=== PATIENT | male | born 1960 | race Caucasian/White ===

== ENCOUNTER 2018-09-10 20:20 | Inpatient (IN) | payer OTHER ==
[2018-09-10] MEDS ORDERED: ATORVASTATIN 80 MG TAB PO STA (20:21)
[2018-09-10] MEDS ORDERED: MORPHINE SULFATE 4 MG/ML SYRINGE IV STA (20:21)
[2018-09-10] MEDS ORDERED: HEPARIN SODIUM,PORCINE 5,000 UNIT/ML 1 ML VIAL IV STA ×2 (20:21)
[2018-09-10] MEDS ORDERED: TICAGRELOR 90 MG TAB PO STA (20:34)
--- NOTE | 2018-09-10 20:43 | ED ---
Chest Pain HPI - General Chief Complaint: Chest Pain Stated Complaint: Chest Pain Time Seen by Provider: 09/10/18 20:20 Source: patient, EMS, RN notes reviewed Mode of arrival: EMS Limitations: no limitations - History of Present Illness Initial Comments: This is a 57-year-old male with a prior history of cardiac stents and UT with last one at age 41 and also is a one half pack a day smoker who had previously quit who states he had the onset today while at rest of retrosternal chest pain it was approximately 7/10 severity did have some nausea some sweats with it. EMS was finally summoned the patient did take 324 mg of aspirin. He was given nitroglycerin pain did improve down to 4/10 however his blood pressure also declined to about 100 systolic. Patient was transported by EMS. He did have evidence of ST elevation anterior leads Q-wave formation in lead 3 noted. On EKG submitted by EMS. No cough no phlegm production no other symptoms reported. Issue currently has not seen a doctor in quite a while and is on no medication. MD Complaint: chest pain - Related Data Allergies Allergy/AdvReac Type Severity Reaction Status Date / Time No Known Allergies Allergy Verified 09/10/18 20:30 Review of Systems ROS Statement: Those systems with pertinent positive or pertinent negative responses have been documented in the HPI. ROS Other: All systems not noted in ROS Statement are negative. EKG Findings - EKG Results: EKG: interpreted by DIANN, sinus rhythm (Sinus rhythm of 86. Interval 150 QRS duration 114 QT since QTC 372/[address] elevation in the anterior leads also appear to show elevation in leads 3 with depression in lead 1 and aVL.) General Exam - General Exam Comments Initial Comments: This is a well-developed well-nourished awake alert oriented 3 male Limitations: no limitations General appearance: alert, anxious Head exam: Present: atraumatic, normocephalic, normal inspection Eye exam: Present: normal appearance, PERRL, EOMI. Absent: scleral icterus, conjunctival injection, periorbital swelling ENT exam: Present: normal exam, mucous membranes moist Neck exam: Present: normal inspection. Absent: tenderness, meningismus, lymphadenopathy Respiratory exam: Present: normal lung sounds bilaterally. Absent: respiratory distress, wheezes, rales, rhonchi, stridor Cardiovascular Exam: Present: regular rate, normal rhythm, normal heart sounds. Absent: systolic murmur, diastolic murmur, rubs, gallop, clicks GI/Abdominal exam: Present: soft, normal bowel sounds. Absent: distended, tenderness, guarding, rebound, rigid Extremities exam: Present: normal inspection, full ROM, normal capillary refill. Absent: tenderness, pedal edema, joint swelling, calf tenderness Back exam: Present: normal inspection Neurological exam: Present: alert, oriented X3, CN II-XII intact Psychiatric exam: Present: normal affect, normal mood Skin exam: Present: warm, dry, intact, pallor. Absent: rash Course Vital Signs 09/10/18 09/10/18 09/10/18 20:22 20:35 20:40 Temperature 97.9 F Pulse Rate 86 90 83 Respiratory 17 17 17 Rate Blood Pressure 129/91 125/85 123/85 O2 Sat by Pulse 95 94 L 98 Oximetry - Reevaluation(s) Reevaluation #1: 09/10/18 20:42 Patient did finally get some relief after IV her feet given. I had discussed the case previously with Dr. Waller could did come the emergency department. I also did discuss case Dr. Oliveros. STEMI alert was started in the emergency department Reevaluation #2: 09/10/18 20:42 With the patient's permission I did discuss the findings with family members or present. Reevaluation #3: 09/10/18 20:44 I did discuss the case with Chest Pain MDM - MDM X-ray was reviewed no definite acute findings are seen. Official reading was pending patient did go up to the [employer] his pain was improved he was evaluated both by cardiology and by the hospitalist. Critical Care Time Critical Care Time: Yes Critical Care Time: 31 minutes of critical care time which includes initial presentation with history physical labs x-rays multiple reevaluation the patient discussed with cardiology discussion with the hospitalist discussion with family members. Review of EKGs documentation of the above. Disposition Clinical Impression: ST elevation myocardial infarction (STEMI), Chest pain Disposition: ADMITTED IP TO THIS [facility] Condition: Serious Referrals: None,Stated [Primary Care Provider] - 1-2 days
[2018-09-10 20:45] LABS: Basophils % (A) 0 %; Eosinophils # (A) 0.1 k/uL (0-0.7); Eosinophils % (A) 1 %; HCT 40.9 % (39.0-53.0); HGB 13.8 gm/dL (13.0-17.5); Lymphocytes # (A) 1.2 k/uL (1.0-4.8); Lymphocytes % (A) 8 %; MCH 32.8 pg (25.0-35.0); MCHC 33.7 g/dL (31.0-37.0); MCV 97.4 fL (80.0-100.0); Mean Platelet Volume 7.3; Monocytes # (A) 0.7 k/uL (0-1.0); Monocytes % (A) 5 %; Neutrophils % (A) 86 %; Platelet Count 272 k/uL (150-450); RDW 13.2 % (11.5-15.5); WBC 15.2 k/uL (3.8-10.6)
[2018-09-10] MEDS ORDERED: IV FLUID CONTINUATION 500 ML IV ONE (20:45)
[2018-09-10] MEDS ORDERED: LIDOCAINE 1% INJ 10MG/ML (20 ML MDV) ONE ×2 (20:49→22:25)
--- NOTE | 2018-09-10 20:51 | XR ---
EXAMINATION: XR chest 1V portable DATE AND TIME: 09/10/2018 8:32 PM CLINICAL INDICATION: PHH; chest pain TECHNIQUE: AP upright portable COMPARISON: None FINDINGS: The lungs are clear. The pleural spaces are negative. The cardiac silhouette is borderline for enlargement. The remainder of the mediastinal silhouette is unremarkable. The skeletal structures and soft tissues are negative for acute findings. IMPRESSION: NO ACUTE PROCESS.
[2018-09-10 20:54] LABS: D-Dimer 0.52 mg/L FEU (<0.60); Partial Thromboplastin Time 37.2 sec (22.0-30.0); Prothrombin Time 10.3 sec (9.0-12.0)
[2018-09-10 20:57] LABS: Albumin 4.1 g/dL (3.5-5.0); Calcium 9.4 mg/dL (8.4-10.2); Magnesium 1.3 mg/dL (1.6-2.3); Total Bilirubin 0.9 mg/dL (0.2-1.3); Total Protein 7.2 g/dL (6.3-8.2)
[2018-09-10] MEDS ORDERED: MIDAZOLAM 2 MG/2 ML VIAL IV ONE (20:57)
[2018-09-10] MEDS ORDERED: LIDOCAINE 1% INJ 10MG/ML (10 ML MDV) SQ ONE (20:57)
[2018-09-10 21:03] LABS: Potassium 4.2 mmol/L (3.5-5.1)
[2018-09-10 21:06] LABS: Creatine Kinase MB 3.5 ng/mL (0.0-2.4)
[2018-09-10 21:07] LABS: Troponin I 0.085 ng/mL (0.000-0.034)
[2018-09-10] MEDS ORDERED: IOPAMIDOL-370 100ML BTL INJ ONE ×3 (21:10→23:15)
[2018-09-10] MEDS ORDERED: BIVALIRUDIN BOLUS 250 MG/50 ML IV ONE (21:18)
[2018-09-10] MEDS ORDERED: BIVALIRUDIN 250 MG in SODIUM CHLORIDE 0.9% 50 ML IV ONE ×2 (21:19→22:10)
[2018-09-10] MEDS ORDERED: ONDANSETRON 4 MG/2 ML VIAL ONE (21:23)
[2018-09-10] MEDS ORDERED: ONDANSETRON 4 MG/2 ML VIAL IVP ONE (21:25)
[2018-09-10] MEDS ORDERED: NOREPINEPHRINE 4 MG in SODIUM CHLORIDE 0.9% 250 ML IV ONE (21:35)
[2018-09-10] MEDS ORDERED: SODIUM CHLORIDE 0.9% 500 ML 500 ML IV ONE (21:36)
[2018-09-10] MEDS ORDERED: ATROPINE SULFATE 0.1 MG/ML 10ML SYRINGE IV ONE ×3 (21:41→22:07)
--- NOTE | 2018-09-10 21:41 | CONS ---
CONSULTATION Mr. Krishnan is a 57-year-old gentleman who came to the emergency room with a complaint of chest pain. The patient was working at home and putting and he started having chest discomfort about 2-1/2 hours prior to coming to the emergency room. The pain was continuous. It was associated with some nausea. When the EMS arrived, the EKG was suggestive of acute anterior wall myocardial infarction. Patient was given nitroglycerin, subsequently became hypotensive, and the patient was given fluids. This patient has a known history of coronary artery disease with a prior history of stenting done at [facility] several years ago. The patient is not seeing any doctor regularly. He is only taking aspirin. He is not taking any cholesterol medicine. The patient smokes about half pack per day. Denies any history of diabetes or hypertension. Patient has been having intermittent chest discomfort for the last 2 months; however, he has not the seen any doctor for that. PAST MEDICAL HISTORY: The patient denies any history of major surgeries. Prior history of stent. REVIEW OF SYSTEMS: The patient denies any history of GI bleeding, any blood in the stool, black stool or any problem with hematuria or any other bleeding disorder. MEDICATIONS: Aspirin. PHYSICAL EXAMINATION: Physical examination at present reveals a 57-year-old gentleman who does not appear to be in any acute distress. He has been having mild discomfort. Blood pressure is 119/87 mmHg. Head/ENT examination is negative. Neck is supple. There is no increase in jugular venous pressure. Both the carotid pulses are felt. There is no bruit. Chest is symmetrical. HEART: The PMI is not felt. First and second heart sounds are heard. Lungs are clinically clear to auscultation and percussion. Abdomen is negative. EXTREMITIES: Peripheral pulsations are weak. Initial EKG done by EMS was suggestive of acute anterior wall myocardial infarction. Subsequent EKG done in the emergency room shows ST-segment elevation in the inferior lead with ST-segment elevation in lead V1. FINAL IMPRESSION: 1. Acute myocardial infarction. 2. History of a prior stent. RECOMMENDATION: Will proceed with a cardiac catheterization for primary angioplasty. The procedure and risks were fully explained to the patient. MMODL / DAVEN: [id number] /
--- NOTE | 2018-09-10 21:41 | CC ---
CARDIAC CATHETERIZATION REPORT DATE OF SERVICE: 09/10/2018 Mr. Krishnan is a 57-year-old gentleman who came to the emergency room with complaint of chest pain. EKG is suggestive of acute anterior wall myocardial infarction. In view of that, the patient was recommended to have a cardiac catheterization. Patient has a prior history of a stent at [facility]. PROCEDURE: The right groin was prepped and draped in the usual manner and the skin was infiltrated with 2% Xylocaine. The right femoral artery was entered using Seldinger technique. A #6- Korean sheath was placed in. Selective coronary angiography was then performed in multiple projections and the left ventricular pressures were obtained. Patient tolerated the procedure well. Moderate sedation was used. Sedation time was 15 minutes. HEMODYNAMICS: Left ventricular end-diastolic pressure was 28 to 32 mmHg prior to angiography. No gradient is noted across the aortic valve. SELECTIVE CORONARY ANGIOGRAPHY: Left main coronary artery is distally . There is about 30% stenosis involving the distal left main and ostial LAD. The LAD is diffusely diseased and mid LAD after the origin of the diagonal branch is totally occluded. The ostial circumflex coronary artery has a 99% stenosis. Right coronary artery is totally occluded in its proximal portion. Distal right coronary artery fills collaterals from the circumflex system. FINAL IMPRESSION: This study reveals total occlusion of the mid LAD, which appears to be a culprit lesion. There is about 30% to 40% stenosis involving the ostial LAD and distal left main. Ostial circumflex coronary artery has a 99% stenosis. The right coronary artery is totally occluded. RECOMMENDATIONS: Films were reviewed with Dr. Hester. We will proceed with a stent to the LAD. MMODL / IJN: [id number] /
[2018-09-10] MEDS ORDERED: SODIUM BICARB 8.4% 50 ML VIAL (1 MEQ/ML) IV ONE ×2 (22:05→22:25)
[2018-09-10] MEDS ORDERED: ETOMIDATE 2 MG/ML 10 ML VIAL ONE (22:09)
[2018-09-10] MEDS ORDERED: LIDOCAINE 1% INJ 10MG/ML (20 ML MDV) SQ ONE (22:26)
[2018-09-10] MEDS ORDERED: ZOLPIDEM 5 MG TAB PO PRN (22:49)
[2018-09-10] MEDS ORDERED: RX INFO: IV CONTRAST WAS GIVEN 1 EACH MISC MISCELLANE PRN (22:49)
[2018-09-10] MEDS ORDERED: MAG HYDROX/AL HYDROX/SIMETH 30 ML CUP PO PRN (22:49)
[2018-09-10] MEDS ORDERED: ATROPINE SULFATE 0.1 MG/ML 10ML SYRINGE IV PRN (22:49)
[2018-09-10] MEDS ORDERED: NITROGLYCERIN SL TABS 0.4 MG TAB SUBLINGUAL PRN (22:49)
[2018-09-10] MEDS ORDERED: SODIUM CHLORIDE 0.9% 1,000 ML IV SCH (23:00)
[2018-09-10] MEDS ORDERED: HEPARIN SOD,PORK IN 0.45% NACL 25,000 UNIT in 0.45% NACL 1 250ML.BAG IV ONE (23:04)
[2018-09-10 23:18] LABS: ABG Base Excess -2.3 mmol/L; ABG HCO3 23 mmol/L (21-25); ABG Oxygen Saturation 92.3 % (94-97); ABG PCO2 37 mmHg (35-45); ABG PH 7.39 (7.35-7.45); ABG PO2 67 mmHg (83-108); ABG TCO2 24 mmol/L (19-24)
[2018-09-10] MEDS ORDERED: SODIUM CHLORIDE 0.9% 1,000 ML IV ONE (23:18)
[2018-09-10] MEDS ORDERED: FUROSEMIDE 10 MG/ML 2 ML VIAL IV ONE (23:28)
[2018-09-10] MEDS ORDERED: ACETAMINOPHEN IV (For NPO) 1,000 MG in EMPTY BAG 1 BAG IVPB PRN (23:43)
[2018-09-10] MEDS ORDERED: NALOXONE 0.4 MG/ML 1 ML VIAL IV PRN (23:43)
[2018-09-11] MEDS ORDERED: HEPARIN SOD,PORK IN 0.45% NACL 25,000 UNIT in 0.45% NACL 1 250ML.BAG IV SCH
[2018-09-11 00:02] LABS: Glucose,Whole Blood 166 mg/dL (75-99)
[2018-09-11 01:22] LABS: Magnesium 1.5 mg/dL (1.6-2.3); Potassium 4.5 mmol/L (3.5-5.1)
[2018-09-11] MEDS: EPINEPHrine 4 MG in DEXTROSE 5% IN WATER 250 ML IV SCH ×4 (01:22→09:01)
[2018-09-11] MEDS: MAGNESIUM SULFATE-D5W PMX 1 GM in DEXTROSE/WATER 1 100ML.BAG IVPB SCH ×2 (01:27→02:04)
--- NOTE | 2018-09-11 01:57 | P.HPIM ---
History of Present Illness H&P Date: 09/11/18 Patient is a 57-year-old male with a PMH of CAD status post 4 stents and active smoker presented to the emergency room due to sudden onset of chest pain. The patient notes that the pain started approximately 2-3 hours prior to presentation and was substernal, pressure-like, with associated nausea. The pain was similar to presentation as his previous MIs though the patient notes that he has not been following the head soft sugar operator and last saw one approximately 10 years ago, and has not been taking previously prescribed medications and had only been taking [id number] aspirin. Further history could not be obtained as the patient was taken to the OR for cardiac catheterization. The patient's seen postop in the medical ICU. Remaining history obtained from RN at bedside. She notes that the patient had been noncompliant to medications and had not been taking his statins or Plavix. She also noted that he continues to smoke as much as half pack per day and last saw primary care physician nearly 15 years ago. He also had been having chest discomfort intermittently over the last 2 months though did not seek any medical attention. The patient postoperatively denied any pain. The EKG on presentation was suggestive of an anterior wall FL with subsequent EKGs showing ST segment elevations in multiple leads. Troponin was 0.085, magnesium 1.3, BNP 154. Cardiology was consulted stat and the patient was diagnosed with a STEMI and taken for cardiac catheterization. The patient underwent the catheterization via right femoral approach and was found to have a mid LAD total occlusion, as likely culprit lesion, along with 99% stenosis of ostial circumflex coronary. As per the MICU RN, the patient underwent stenting of both the LAD along with the circumflex and developed hypotension with bradycardia immediately postoperatively. A balloon pump was thereby inserted along with a transvenous pacer. Review of Systems Pertinent positives and negatives as discussed in HPI, a complete review of systems was performed and all other systems are negative. Medications and Allergies Allergies Allergy/AdvReac Type Severity Reaction Status Date / Time No Known Allergies Allergy Verified 09/10/18 20:30 Physical Exam Vitals: Vital Signs Temp Pulse Resp BP Pulse Ox 09/11/18 01:05 93 L 09/11/18 01:00 108 H 21 124/85 94 L 09/11/18 00:40 106 H 20 110/80 92 L 09/11/18 00:30 102 H 12 98/77 91 L 09/11/18 00:20 104 H 19 98/77 90 L 09/11/18 00:10 104 H 9 L 98/77 91 L 09/11/18 00:00 108 H 23 94 L 09/10/18 23:58 108 H 18 09/10/18 20:45 84 17 118/84 97 09/10/18 20:40 83 17 123/85 98 09/10/18 20:35 90 17 125/85 94 L 09/10/18 20:22 97.9 F 86 17 129/91 95 Intake and Output 09/10/18 09/10/18 09/11/18 14:59 22:59 06:59 Intake Total 847.87 150 Output Total 475 Balance 847.87 -325 Intake: IV 847.87 150 Sodium Chloride 0.9% 1, 150 000 ml @ 75 mls/hr IV . [id number] [facility] Rx#:[id number] Output: Urine 475 Other: Weight 81.647 kg General: non toxic, no distress, appears at stated age, normal weight Derm: no unusual rashes/lesions no unusual ecchymoses, warm, dry Head: atraumatic, normocephalic, symmetric Eyes: EOMI, no lid lag, anicteric sclera, pupils equal round reactive to light ENT: Nose and ears atraumatic, no thrush, no pharyngeal erythema Neck: No thyromegaly, no cervical lymphadenopathy, trachea midline, supple Mouth: no lip lesion, mucus membranes moist Cardiovascular: Balloon pump sounds appreciated, positive posterior tibial pulse bilateral, no edema, capillary refill less than 2 seconds Lungs: CTA bilateral, no rhonchi, no rales , no accessory muscle use Abdominal: soft, nontender to palpation, no guarding, no appreciable organomegaly, normal bowel sounds Ext: no gross muscle atrophy, moving all extremities grossly, right femoral dressing in place with multiple tubes in place Psych: Alert, oriented, appropriate affect, answering questions appropriately Results CBC & Chem 7: 09/11/18 04:15 09/11/18 04:15 Labs: Abnormal Lab Results - Last 24 Hours (Table) 09/10/18 09/10/18 09/10/18 Range/Units 20:28 20:28 20:28 WBC 15.2 H (3.8-10.6) k/uL RBC 4.20 L (4.30-5.90) m/uL Neutrophils # 13.0 H (1.3-7.7) k/uL APTT (22.0-30.0) sec ABG pO2 (83-108) mmHg ABG O2 Saturation (94-97) % Glucose 120 H (74-99) mg/dL POC Glucose (mg/dL) (75-99) mg/dL Magnesium 1.3 L (1.6-2.3) mg/dL Total Creatine Kinase 246 H (55-170) U/L CK-MB (CK-2) 3.5 H (0.0-2.4) ng/mL Troponin I 0.085 H* (0.000-0.034) ng/mL 09/10/18 09/10/18 09/10/18 Range/Units 20:28 23:15 23:59 WBC (3.8-10.6) k/uL RBC (4.30-5.90) m/uL Neutrophils # (1.3-7.7) k/uL APTT 37.2 H (22.0-30.0) sec ABG pO2 67 L (83-108) mmHg ABG O2 Saturation 92.3 L (94-97) % Glucose (74-99) mg/dL POC Glucose (mg/dL) 166 H (75-99) mg/dL Magnesium (1.6-2.3) mg/dL Total Creatine Kinase (55-170) U/L CK-MB (CK-2) (0.0-2.4) ng/mL Troponin I (0.000-0.034) ng/mL 09/11/18 Range/Units 00:36 WBC (3.8-10.6) k/uL RBC (4.30-5.90) m/uL Neutrophils # (1.3-7.7) k/uL APTT (22.0-30.0) sec ABG pO2 (83-108) mmHg ABG O2 Saturation (94-97) % Glucose (74-99) mg/dL POC Glucose (mg/dL) (75-99) mg/dL Magnesium 1.5 L (1.6-2.3) mg/dL Total Creatine Kinase (55-170) U/L CK-MB (CK-2) (0.0-2.4) ng/mL Troponin I (0.000-0.034) ng/mL Assessment and Plan Plan: STEMI status post cardiac catheterization with stent to mid LAD and circumflex -Defer to cardiology service -Currently on Aspirin, Lipitor, and Brilinta -Cardiac monitoring Hypomagnesemia -Replace and monitor ASHLEY vs CKD -Monitor BMP Hyperglycemia -Check A1c DVT//GI prophylaxis -Heparin -Protonix The patient is admitted with an anticipated greater than than 2 midnight stay for evaluation of STEMI. CODE STATUS: Full code Discussed with: Patient Anticipated discharge date: 09/14/[address]: Home A total of 60 minutes was spent on the care of this complex patient more than 50 % of the time was spent in counseling and care coordination.
[2018-09-11 03:14] LABS: Troponin I 46.5 ng/mL (0.000-0.034)
[2018-09-11] MEDS ORDERED: LIDOCAINE-D5W PMX 2G/250ML 2,000 MG in DEXTROSE/WATER 1 250ML.BAG IV SCH (03:30)
[2018-09-11 05:07] LABS: Basophils % (A) 0 %; Eosinophils % (A) 0 %; HCT 39.8 % (39.0-53.0); HGB 13.8 gm/dL (13.0-17.5); Lymphocytes % (A) 7 %; MCH 33.9 pg (25.0-35.0); MCHC 34.7 g/dL (31.0-37.0); MCV 97.8 fL (80.0-100.0); Mean Platelet Volume 6.6; Monocytes # (A) 0.8 k/uL (0-1.0); Monocytes % (A) 6 %; Neutrophils # (A) 12.1 k/uL (1.3-7.7); Neutrophils % (A) 86 %; Platelet Count 293 k/uL (150-450); RBC 4.07 m/uL (4.30-5.90); RDW 13.4 % (11.5-15.5); WBC 14.1 k/uL (3.8-10.6)
[2018-09-11 05:15] LABS: Albumin 3.7 g/dL (3.5-5.0); Calcium 8.7 mg/dL (8.4-10.2); Magnesium 2.3 mg/dL (1.6-2.3); Phosphorus 4.7 mg/dL (2.5-4.5); Potassium 4.7 mmol/L (3.5-5.1); Total Protein 6.6 g/dL (6.3-8.2)
--- NOTE | 2018-09-11 08:17 | XR ---
EXAMINATION TYPE: XR chest 1V DATE OF EXAM: 09/11/2018 COMPARISON: 09/10/2018 HISTORY: 57-year-old male difficulty breathing, intra-aortic balloon pump placement TECHNIQUE: Single frontal view of the chest is obtained. FINDINGS: The radiopaque marker for the intra-aortic balloon pump is in the expected location of the distal arc h. Hilar and interstitial densities. No hanny consolidation or sizable effusion. Heart upper limits of n ormal in size. IMPRESSION: 1. Radiopaque marker for the intra-aortic balloon pump in the expected region of the distal arch. 2. Suspect developing pulmonary vascular congestion.
--- NOTE | 2018-09-11 08:25 | PTCA ---
PERCUTANEOUSTRANS CORORONARY ANGIOGRAPHY DATE OF SERVICE: 09/10/2018 PERFORMING PHYSICIAN: Gutierrez Hester MD, dental ceramist. PROCEDURE PERFORMED: 1. Successful stenting of the mid left anterior descending artery using 2.75 x 38 mm Xience drug-eluting stent with a good angiographic result and reduction of stenosis from 100% to 0%. 2. Successful stenting of the ostial left circumflex using 2.5 x 12 mm Xience drug- eluting stent with a good angiographic result and reduction of stenosis from 99.9% to 0%. 3. Successful placement of transvenous temporary pacemaker. 4. Successful placement of intra-aortic balloon pump. INDICATION: This is a pleasant 57-year-old gentleman with history of coronary artery disease and prior stenting of the LAD that was performed about 15 years ago with the patient is not following with any population health coach for the last 10 years and not taking any medications beside aspirin daily was brought to the emergency room at [facility] with chest discomfort and EKG findings consistent with acute anterior ST-elevation myocardial infarction. The patient underwent an emergent heart catheterization by Dr. Frederick Waller and was found to have chronic total occlusion of the RCA which fills by collaterals from the left coronary system, critical disease involving the ostial and mid left circumflex, as well as occluded LAD which seems to be in-stent occlusion. The LAD was occluded in the midportion. Because of that an emergent PCI of the LAD was advised. APPROACH: Right common femoral artery. COMPLICATION: None. LEVEL OF SEDATION: Moderate with sedation length of 88 minutes. Door to balloon was 62 minutes. PROCEDURE DESCRIPTION: Please refer to the diagnostic heart catheterization that was performed by Dr. Frederick Waller. Anticoagulation was initiated using Angiomax with bolus and drip per protocol. Subsequently, the left main was engaged using an XP35 LAD guide. I did cross the acute total occlusion in the mid LAD using a run-through wire. After that I did balloon angioplasty of the mid LAD using 2.5 x 12 mm balloon where I did multiple PTCA ballooning of the acute total occlusion in the mid LAD. After that I was able to restore the flow in the LAD. Subsequently I tried to advance 2.75 x 38 mm Xience drug- eluting stent to the mid LAD, but the stent will not make the turn from the left main to the proximal LAD. Because of that, I decided to use GuideLiner and with adjunctive use of GuideLiner I was able to advance the stent to the mid LAD where the stent was positioned under fluoroscopy guidance and deployed under 12 atmospheres for 20 seconds. Subsequently after deploying the stent in the LAD. The patient went into cardiogenic shock. He was bradycardic, hypotensive, and the following angiogram showed no flow in the left circumflex coronary artery. The ostial circumflex was already disease about 99.9%. At that point, we started supporting the blood pressure using Levophed and also I gave the patient multiple doses of epinephrine. With that, we were able to get the systolic pressure up to about 80 to 90 mmHg. Subsequently the patient's blood pressure dropped again to the 60s and the following angiogram showed no flow in the left circumflex coronary artery. Again, I restarted the patient on Levophed and again I gave the patient atropine without any significant improvement in the heart rate. At that point, I decided to do a PCI of the left circumflex in view of the cardiogenic shock. So, the left circumflex was wired using a whisper wire. After that I did balloon angioplasty using 2.5 x 12 mm balloon before I deployed 2.5 x 12 mm Xience drug- eluting stent where the stent was positioned under fluoroscopy guidance and deployed under fluoroscopy guidance with the following angiogram showing good angiographic results in the left circumflex coronary artery without any pinching on the LAD. After that, I decided to put temporary pacemaker in case the patient's heart rate dropped during the night. I did access the right common femoral vein using an 18-gauge Cook needle, I advanced an 0.035 wire, and then placed 6-Uzbek sheath in the right common femoral vein. After that, I placed temporary pacemaker in the right ventricle under fluoroscopy guidance with backup heart rate of 60 and amp of 5. Beside that and because of the continuous blood pressure, I decided to place intra- aortic balloon pump. So I exchanged my 6-Uzbek arterial sheath into the balloon pump sheath using the balloon pump wire. The balloon pump was advanced under fluoroscopy guidance to the descending aorta and we initiated with ratio of 1:1. At that point, the procedure was completed without any complication beside the cardiogenic shock. We did not have to intubate the patient. POSTPROCEDURE MANAGEMENT: 1. Dual antiplatelet therapy. 2. Hold any kind of beta-anneliese or HILARIA inhibitor in view of the low blood pressure. 3. High-intensity statin. 4. Smoking cessation. 5. ICU admission. 6. Follow up with the patient. YNES / DAVEN: [id number] /
[2018-09-11] MEDS ORDERED: INFLUENZA VACCINE (6 MOS+) 60 MCG/0.5 ML SYRINGE IM ONE (08:44)
[2018-09-11] MEDS: METOPROLOL TARTRATE 25 MG TAB PO SCH ×2 (09:17→20:30)
[2018-09-11] MEDS: ASPIRIN 81 MG PO SCH (09:17)
[2018-09-11] MEDS: PANTOPRAZOLE 40 MG/10 ML VIAL IV SCH (09:17)
[2018-09-11] MEDS: TICAGRELOR 90 MG TAB PO SCH ×2 (09:18→20:30)
--- NOTE | 2018-09-11 10:30 | ECHOF ---
Referral Reason:STEMI MEASUREMENTS -------- HEIGHT: 170.2 cm WEIGHT: 81.6 kg BP: 123/62 RVIDd: 3.4 cm (< 3.3) IVSd: 1.2 cm (0.6 - 1.1) LVIDd: 4.0 cm (3.9 - 5.3) LVPWd: 1.2 cm (0.6 - 1.1) IVSs: 1.6 cm LVIDs: 3.1 cm LVPWs: 1.6 cm LA Diam: 3.1 cm (2.7 - 3.8) LAESV Index (A-L): 20.36 ml/m Ao Diam: 3.3 cm (2.0 - 3.7) AV Cusp: 2.1 cm (1.5 - 2.6) MV EXCURSION: 17.007 mm (> 18.000) MV EF SLOPE: 92 mm/s (70 - 150) EPSS: 0.6 cm MV E Tariq: 1.23 m/s MV DecT: 128 ms MV A Tariq: 0.62 m/s MV E/A Ratio: 1.99 RAP: 15.00 mmHg RVSP: 34.03 mmHg FINDINGS -------- Sinus rhythm. This was a technically good study. The left ventricular size is normal. There is borderline concentric left ventricular hypertrophy. Overall left ventricular systolic function is moderately impaired with, an EF between 35 - 40 %. B joseph inferior LV wall motion is hypokinetic. Basal inferoseptal LV wall motion is hypokinetic. Apical anterior LV wall motion is hypokinetic. Apical lateral LV wall motion is hypokinetic. Ap ical inferior LV wall motion is hypokinetic. Apical septum LV wall motion is hypokinetic. The right ventricle is mildly enlarged. Normal LA size by volume 22+/-6 ml/m2. The right atrium is normal in size. The aortic valve is trileaflet and appears structurally normal. Mild mitral regurgitation is present. Mild tricuspid regurgitation present. There is borderline pulmonary hypertension. The right ventr icular systolic pressure, as measured by Doppler, is 34.03mmHg. Trace/mild (physiologic) pulmonic regurgitation. The aortic root size is normal. Normal inferior vena cava with less than 50% inspiratory collapse consistent with estimated right atr ial pressure of 15 mmHg. There is no pericardial effusion. CONCLUSIONS -------- 1. Sinus rhythm. 2. This was a technically good study. 3. The left ventricular size is normal. 4. There is borderline concentric left ventricular hypertrophy. 5. Overall left ventricular systolic function is moderately impaired with, an EF between 35 - 40 %. 6. Basal inferior LV wall motion is hypokinetic. 7. Basal inferoseptal LV wall motion is hypokinetic. 8. Apical anterior LV wall motion is hypokinetic. 9. Apical lateral LV wall motion is hypokinetic. 10. Apical inferior LV wall motion is hypokinetic. 11. Apical septum LV wall motion is hypokinetic. 12. The right ventricle is mildly enlarged. 13. Normal LA size by volume 22+/-6 ml/m2. 14. The right atrium is normal in size. 15. The aortic valve is trileaflet and appears structurally normal. 16. Mild mitral regurgitation is present. 17. Mild tricuspid regurgitation present. 18. There is borderline pulmonary hypertension. 19. The right ventricular systolic pressure, as measured by Doppler, is 34.03mmHg. 20. Trace/mild (physiologic) pulmonic regurgitation. 21. The aortic root size is normal. 22. Normal inferior vena cava with less than 50% inspiratory collapse consistent with estimated right atrial pressure of 15 mmHg. 23. There is no pericardial effusion. PLASTER MIXER: Debora Turner RDCS
--- NOTE | 2018-09-11 10:40 | PN ---
PROGRESS NOTE Mr. Krishnan is a 57-year-old male who presented with acute anterior myocardial infarction, underwent emergent angioplasty yesterday by Dr. Hester with placement of stent in the LAD and the ostial left circumflex. He had a temporary pacemaker implantation as well as intra-aortic balloon pump. He is feeling better today. He has no significant chest pain. He had runs of nonsustained ventricular tachycardia. He is on IV lidocaine. Hemodynamically stable. He is on no pressors. He denies any dizziness or palpitation. He continues to be on aspirin once a day, Lipitor 80 mg daily in addition to Brilinta 90 mg twice a day. PHYSICAL EXAMINATION: Blood pressure running in the 120s with a heart rate in the 90s. LUNGS: Clear anteriorly. HEART: Regular rate and rhythm, S1, S2. No S3 with systolic murmur, no diastolic murmur. ABDOMEN: Soft, nontender. EXTREMITIES: No edema, right groin with intra-aortic balloon pump and temporary pacemaker is noted. LAB DATA: Revealed a peak troponin of 46.5, BUN and creatinine of 15 and 1.4, potassium 4.7, hemoglobin of 13.8, EKG revealed evidence of anterior wall myocardial infarction. IMPRESSION: 1. Status post anterior myocardial infarction with stenting of the LAD and ostial left circumflex. 2. Intra-aortic balloon pump. 3. Temporary pacemaker not used at this point. 4. Prior history of stenting. RECOMMENDATION: I would recommend to cut down the intra-aortic balloon pump 1 to 2 and if he is stable, then try to wean it off and pull it off. Will also pull the temporary pacemaker if he is not using it. I will add a low-dose beta anneliese. Obtain an echocardiogram and depending on his progress, further recommendation will be made. MMODL / IJN: [id number] /
[2018-09-11 10:50] VITALS: BMI 28.1
--- NOTE | 2018-09-11 11:34 | P.CNPUL ---
History of Present Illness Consult date: 09/11/18 Requesting physician: Love Blanton Reason for consult: other (Cardiogenic shock) Chief complaint: Chest pain History of present illness: This is a 57-year-old white male with history of coronary artery disease, multiple stents placed at [facility] a few years back. Patient presented to the ER with sudden onset of chest pain. Pain was described as pressure in the substernal area, associated with diaphoresis, nausea but no vomiting. Patient was last seen by his sleep scientist over 10 years ago, and he doesn't follow with anyone on a regular basis. He is only on aspirin. Not on any statins, and not taking any Plavix. EKG on presentation was suggestive of anterior wall myocardial infarction with ST elevation in multiple leads. Troponin was elevated. Patient was seen by cardiology and felt to have as ST elevation myocardial infarction went for immediate cardiac catheterization. He was found to have occlusion of mid LAD and 99% stenosis of the ostial circumflex coronary artery. Patient underwent stenting of the mid LAD. And he underwent successful stenting of the ostial left circumflex. Temporary pacemaker was also placed, and in the catheterization lab, patient required intra-aortic balloon pump placement because of low blood pressure and felt the patient may be going into cardiogenic shock. Patient was then transferred to the ICU with intra-aortic balloon pump in place, did not require intubation or mechanical ventilation. I saw him this morning in the ICU, and he seems to be doing quite well. He had no pain, no shortness of breath, no cough no wheezing. Patient is already on do well and the platelet therapy his beta blockers and HILARIA inhibitor's are presently on hold for low blood pressure. And the intra-aortic balloon pump may be removed later this afternoon by cardiology. Chest x-ray showed mild interstitial edema. Echocardiogram showed impaired LV function, ejection fraction of 35-40%. Intra-aortic balloon pump is now at 1-2 augmentation. Review of Systems 14 point review of systems were obtained, please refer to pertinent positives in HPI, otherwise remaining systems are negative. During my evaluation, the patient was basically asymptomatic, he had no headache no blurred vision no dizziness, no nausea no vomiting no abdominal pain, no chest pain, no palpitations, no shortness of breath no cough no wheezing no dysuria and no frequency no urgency no hematuria. No aches or pains, no fever or chills. Past Medical History Past Medical History: Coronary Artery Disease (CAD), GERD/Reflux, Hypertension, Myocardial Infarction (NM) Additional Past Medical History / Comment(s): NM in 1998 and pt thinks possibly another in 2001, occasional bilateral shoulder pain. Last Myocardial Infarction Date:: 09/10/18 History of Any Multi-Drug Resistant Organisms: None Reported Past Surgical History: Heart Catheterization With Stent, Tonsillectomy Additional Past Surgical History / Comment(s): 1998 PCI with stent, PCI with stent 2001, PCI with stent 09/10/18. Past Anesthesia/Blood Transfusion Reactions: No Reported Reaction Date of Last Stent Placement:: 09/10/18 Smoking Status: Current every day smoker - Past Family History Father Family Medical History: Myocardial Infarction (NM) Additional Family Medical History / Comment(s): Father of a NM at the age of 72 yrs. Mother Additional Family Medical History / Comment(s): Mother has a pacemaker and is 91 yrs old. Brother(s) Family Medical History: Myocardial Infarction (NM) Additional Family Medical History / Comment(s): Pt has 3 brothers. One of a NM at the age of 46 or 47yrs. The two other brothers are healthy. Sister(s) Family Medical History: Coronary Artery Disease (CAD), Myocardial Infarction (NM ) Additional Family Medical History / Comment(s): Pt has 2 sisters. Oldest sister had a NM at the age of 61 yrs and CABG. The other sister is healthy. Medications and Allergies Home Medications Medication Instructions Recorded Confirmed Type Aspirin [[place] Aspirin EC] 81 mg PO DAILY 09/11/18 09/11/18 History Omeprazole [PriLOSEC] 20 mg PO DAILY 09/11/18 09/11/18 History Allergies Allergy/AdvReac Type Severity Reaction Status Date / Time No Known Allergies Allergy Verified 09/10/18 20:30 Physical Exam Vitals: Vital Signs Temp Pulse Resp BP Pulse Ox 09/11/18 11:00 94 22 113/78 92 L 09/11/18 10:30 87 14 113/78 92 L 09/11/18 10:00 86 18 113/78 94 L 09/11/18 09:30 90 17 113/78 91 L 09/11/18 09:00 89 16 94 L 09/11/18 08:00 98.1 F 92 18 102/82 92 L 09/11/18 07:50 18 09/11/18 07:00 92 16 107/77 94 L 09/11/18 06:00 92 20 123/62 94 L 09/11/18 05:00 98 16 116/84 93 L 09/11/18 04:13 95 09/11/18 04:00 98.0 F 98 16 106/84 93 L 09/11/18 03:00 103 H 17 108/85 93 L 09/11/18 02:00 109 H 21 139/85 90 L 09/11/18 01:05 93 L 09/11/18 01:00 108 H 21 124/85 94 L 09/11/18 00:40 106 H 20 110/80 92 L 09/11/18 00:30 102 H 12 98/77 91 L 09/11/18 00:20 104 H 19 98/77 90 L 09/11/18 00:10 104 H 9 L 98/77 91 L 09/11/18 00:00 108 H 21 94 L 09/10/18 23:58 108 H 18 09/10/18 20:45 84 17 118/84 97 09/10/18 20:40 83 17 123/85 98 09/10/18 20:35 90 17 125/85 94 L 09/10/18 20:22 97.9 F 86 17 129/91 95 Intake and Output 09/10/18 09/11/18 09/11/18 22:59 06:59 14:59 Intake Total 847.87 770 262.25 Output Total 1285 190 Balance 847.87 -515 72.25 Intake: IV 847.87 770 205 Lidocaine-D5w Pmx 2G/ 45 60 250Ml 2,000 mg In Dextrose/Water 1 250ml. bag @ 1 MG/MIN 7.5 mls/hr IV .Q24H [facility] Rx#: [id number] Magnesium Sulfate-D5w Pmx 200 1 gm In Dextrose/Water 1 100ml.bag @ 100 mls/hr IVPB Q1H [facility] Rx#: [id number] Sodium Chloride 0.9% 1, 525 145 000 ml @ 75 mls/hr IV . [id number] [facility] Rx#:[id number] Intake, IV Titration 57.25 Amount Lidocaine-D5w Pmx 2G/ 57.25 250Ml 2,000 mg In Dextrose/Water 1 250ml. bag @ 1 MG/MIN 7.5 mls/hr IV .Q24H [facility] Rx#: [id number] Output: Urine 1285 190 Other: Voiding Method Indwelling Catheter Indwelling Catheter Weight 81.647 kg 81.647 kg 81.647 kg Physical Exam: Revealed a 57-year-old white male, pleasant, in no distress. Head: Atraumatic normocephalic. HEENT:[Neck is supple.] [No neck masses.] [No thyromegaly.] [No JVD.] PERRLA, EOMI, no icterus. Moist mucous membranes noted. Chest: [Clear throughout, no crackles, no rhonchi, no wheezes.] Cardiac Exam: [Normal S1 and S2, no S3 gallop, no murmur.] Abdomen: [Soft, nontender, no megaly, no rebound, no guarding, normal bowel sounds.] Extremities: [No clubbing, no edema, no cyanosis.] Intra-aortic balloon pump was noted in the groin. Distal pulses in lower extremities are diminished, palpable by Doppler Neurological Exam: [No focal neurologic deficit.] Alert oriented 3. Psychiatric: Normal mood, affect and mental status examination. Skin: No rashes. Lymphatics: No lymphadenopathy. Results - Laboratory Findings CBC and BMP: 09/11/18 04:15 09/11/18 04:15 ABG ABG pH 7.39 (7.35-7.45) 09/10/18 23:15 ABG pCO2 37 mmHg (35-45) 09/10/18 23:15 ABG pO2 67 mmHg (83-108) L 09/10/18 23:15 ABG O2 Saturation 92.3 % (94-97) L 09/10/18 23:15 PT/INR, D-dimer PT 10.3 sec (9.0-12.0) 09/10/18 20:28 INR 1.0 (<1.2) 09/10/18 20:28 D-Dimer 0.52 mg/L FEU (<0.60) 09/10/18 20:28 Abnormal lab findings: Abnormal Labs 09/10/18 09/10/18 09/10/18 20:28 20:28 20:28 WBC 15.2 H RBC 4.20 L Neutrophils # 13.0 H APTT ABG pO2 ABG O2 Saturation Creatinine Glucose 120 H POC Glucose (mg/dL) Phosphorus Magnesium 1.3 L AST Total Creatine Kinase 246 H CK-MB (CK-2) 3.5 H Troponin I 0.085 H* 09/10/18 09/10/18 09/10/18 20:28 23:15 23:59 WBC RBC Neutrophils # APTT 37.2 H ABG pO2 67 L ABG O2 Saturation 92.3 L Creatinine Glucose POC Glucose (mg/dL) 166 H Phosphorus Magnesium AST Total Creatine Kinase CK-MB (CK-2) Troponin I 09/11/18 09/11/18 09/11/18 00:36 02:18 04:15 WBC 14.1 H RBC 4.07 L Neutrophils # 12.1 H APTT ABG pO2 ABG O2 Saturation Creatinine Glucose POC Glucose (mg/dL) Phosphorus Magnesium 1.5 L AST Total Creatine Kinase CK-MB (CK-2) 335.0 H Troponin I 46.500 H* 09/11/18 09/11/18 09/11/18 04:15 04:15 08:07 WBC RBC Neutrophils # APTT 72.9 H ABG pO2 ABG O2 Saturation Creatinine 1.41 H Glucose 110 H POC Glucose (mg/dL) Phosphorus 4.7 H Magnesium AST 559 H Total Creatine Kinase CK-MB (CK-2) Troponin I 111.000 H* - Diagnostic Findings Chest x-ray: image reviewed (Mild pulmonary vascular congestion consistent with mild edema noted.) Assessment and Plan Assessment: Impression: 1 acute anterior myocardial infarction, status post stenting of LAD and ostial left circumflex. 2 cardiogenic shock requiring intra-aortic balloon pump placement. 3 status post temporary pacemaker insertion 4 ischemic cardiomyopathy and LV dysfunction 5 acute systolic congestive heart failure 6 history of known coronary artery disease and previous stenting 7 tobacco dependence syndrome 8 acute kidney injury, likely cardiorenal. 9 history of hypercholesterolemia, noncompliant with medications. Recommendation: Continue present treatment plan including close monitoring in the ICU, intra-aortic balloon pump, that is being addressed by cardiology, may be discontinued later this afternoon. Do well and antiplatelet therapy, consider beta blockers and HILARIA inhibitor's high intensity statins, counseled regarding smoking cessation diuretics for his mild CHF and these were given earlier this morning. We will continue to follow closely. Time with Patient: Greater than 30
[2018-09-11] MEDS ORDERED: FUROSEMIDE 10 MG/ML 2 ML VIAL IV ONE (12:35)
--- NOTE | 2018-09-11 14:35 | P.PN ---
Progress Note - Text Progress Note Date: 09/11/18 Please refer to the H&P for full note. He is a 57-year-old male with PMH of CAD, hypertension that initially presented to the ED for chest pain. EKG showed ST elevation in multiple leads along with troponin elevation leading to the diagnosis of STEMI. Patient was seen around 2:30 PM. BUSINESS PROCESS EXPERT Leslie mass removing intra-aortic balloon pump without complications. Patient currently chest pain-free. We will follow cardiology recommendations. Continue aspirin, Lipitor and Brilinta.
[2018-09-11 17:16] LABS: Hemoglobin A1C 5.5 % (4.0-6.0)
[2018-09-11] MEDS: ATORVASTATIN 80 MG TAB PO SCH (20:30)
[2018-09-12 05:18] LABS: Basophils % (A) 0 %; Eosinophils # (A) 0.2 k/uL (0-0.7); Eosinophils % (A) 1 %; HCT 42.9 % (39.0-53.0); HGB 14.3 gm/dL (13.0-17.5); Lymphocytes # (A) 0.9 k/uL (1.0-4.8); Lymphocytes % (A) 5 %; MCH 33.1 pg (25.0-35.0); MCHC 33.4 g/dL (31.0-37.0); MCV 99.1 fL (80.0-100.0); Mean Platelet Volume 6.1; Monocytes # (A) 0.8 k/uL (0-1.0); Monocytes % (A) 5 %; Neutrophils # (A) 14.6 k/uL (1.3-7.7); Neutrophils % (A) 88 %; Platelet Count 269 k/uL (150-450); RBC 4.33 m/uL (4.30-5.90); RDW 13.3 % (11.5-15.5); WBC 16.6 k/uL (3.8-10.6)
[2018-09-12 05:28] LABS: Potassium 4.3 mmol/L (3.5-5.1)
[2018-09-12 05:29] LABS: Albumin 3.6 g/dL (3.5-5.0); Calcium 8.6 mg/dL (8.4-10.2); Magnesium 1.9 mg/dL (1.6-2.3); Phosphorus 3.3 mg/dL (2.5-4.5); Total Bilirubin 2.9 mg/dL (0.2-1.3); Total Protein 6.5 g/dL (6.3-8.2)
[2018-09-12] MEDS ORDERED: FUROSEMIDE 10 MG/ML 2 ML VIAL IV ONE (07:43)
--- NOTE | 2018-09-12 08:05 | PN ---
PROGRESS NOTE Mr. Krishnan is a 57-year-old male who presented with anterior wall myocardial infarction, underwent stenting of the totally occluded stent in the LAD and stenting of the ostial of the left circumflex, had intra-aortic balloon pump placed. The balloon pump was removed yesterday. He has mild dyspnea yesterday. He denies any chest pain. He denies any dizziness or palpitation. He denies any nausea. He continues to be at this time on aspirin once a day, Lipitor 80 mg daily, metoprolol tartrate 25 mg twice a day, Brilinta 90 mg twice a day. PHYSICAL EXAMINATION: Blood pressure 115/80 with the heart rate in the 90s. LUNGS: A few crackles at the bases. HEART: Regular rate and rhythm. S1, S2. No S3 with a systolic murmur. No diastolic murmur. ABDOMEN: Soft and nontender. EXTREMITIES: No edema. LAB DATA: Lab data revealed BUN and creatinine 26 and 1.54. Potassium 4.3. AST of 705, ALT of 118. Troponin up to 111. Hemoglobin of 14.3, white blood cell of 16.6. IMPRESSION: 1. Status post anterior myocardial infarction and stenting of the LAD and the left circumflex. 2. Chronic obstructive lung disease with chronic tobacco use. 3. Ischemic cardiomyopathy. 4. Hyperlipidemia. 5. Ischemic cardiomyopathy. RECOMMENDATION: The patient will receive 1 dose of IV Lasix at this time. We will follow his renal function. Continue observation in the ICU for today. He is on the beta anneliese. I will hold on the HILARIA inhibitor at this time and depending on his progress, further recommendation will be made. MMODL / IJN: [id number] /
[2018-09-12] MEDS: ASPIRIN 81 MG PO SCH (08:07)
[2018-09-12] MEDS: TICAGRELOR 90 MG TAB PO SCH ×2 (08:08→21:17)
[2018-09-12] MEDS: METOPROLOL TARTRATE 25 MG TAB PO SCH ×2 (08:08→21:17)
[2018-09-12] MEDS: PANTOPRAZOLE 40 MG/10 ML VIAL IV SCH (08:12)
--- NOTE | 2018-09-12 08:12 | XR ---
EXAMINATION TYPE: XR chest 1V DATE OF EXAM: 09/12/2018 COMPARISON: 09/11/2018 HISTORY: Shortness of breath TECHNIQUE: Single frontal view of the chest is obtained. FINDINGS: Intra-aortic balloon pump has been removed. Linear opacity now overlies the right lung ape x, likely external to the patient. Cardia mediastinal silhouette is enlarged. There is worsening of t he pulmonary vascular congestion and interstitial edema with new confluent right infrahilar opacity, likely pulmonary edema. No sizable pneumothorax or pleural effusion. IMPRESSION: Worsening interstitial pulmonary edema and new right infrahilar opacity, also likely con fluent pulmonary edema although pneumonia is possible. Continued follow-up is recommended.
--- NOTE | 2018-09-12 11:39 | P.PN ---
Subjective Progress Note Date: 09/12/18 Principal diagnosis: Acute ST elevation myocardial infarction and cardiogenic shock This is a 57-year-old white male with history of coronary artery disease, multiple stents placed at [facility] a few years back. Patient presented to the ER with sudden onset of chest pain. Pain was described as pressure in the substernal area, associated with diaphoresis, nausea but no vomiting. Patient was last seen by his brickmason helper over 10 years ago, and he doesn't follow with anyone on a regular basis. He is only on aspirin. Not on any statins, and not taking any Plavix. EKG on presentation was suggestive of anterior wall myocardial infarction with ST elevation in multiple leads. Troponin was elevated. Patient was seen by cardiology and felt to have as ST elevation myocardial infarction went for immediate cardiac catheterization. He was found to have occlusion of mid LAD and 99% stenosis of the ostial circumflex coronary artery. Patient underwent stenting of the mid LAD. And he underwent successful stenting of the ostial left circumflex. Temporary pacemaker was also placed, and in the catheterization lab, patient required intra-aortic balloon pump placement because of low blood pressure and felt the patient may be going into cardiogenic shock. Patient was then transferred to the ICU with intra-aortic balloon pump in place, did not require intubation or mechanical ventilation. I saw him this morning in the ICU, and he seems to be doing quite well. He had no pain, no shortness of breath, no cough no wheezing. Patient is already on do well and the platelet therapy his beta blockers and HILARIA inhibitor's are presently on hold for low blood pressure. And the intra-aortic balloon pump may be removed later this afternoon by cardiology. Chest x-ray showed mild interstitial edema. Echocardiogram showed impaired LV function, ejection fraction of 35-40%. Intra-aortic balloon pump is now at 1-2 augmentation. Patient was reevaluated today on 09/12/2018, remains in the ICU, hemodynamically stable, comfortable, denies any shortness of breath. Intra-aortic balloon pump was discontinued yesterday. Chest x-ray showed slight interstitial edema, patient received Lasix earlier with good response. Denies any chest pain, no cough no wheezing no fever no chills. WBC count is 16.6 hemoglobin is 14.3 electrolytes are normal renal functioning is slightly worse with a creatinine of 1.54 compared to 1.41 yesterday. And I believe that is related to his cardiogenic shock as well as contrast media which was given for his cardiac catheterization causing a bit of kidney injury. Objective - Vital Signs Vital signs: Vital Signs Temp 98.8 F 09/12/18 09:00 Pulse 84 09/12/18 11:00 Resp 23 09/12/18 11:00 BP 103/78 09/12/18 11:00 Pulse Ox 95 09/12/18 11:00 Intake & Output 09/11/18 09/12/18 09/12/18 18:59 06:59 18:59 Intake Total 609.75 390 0 Output Total 865 425 325 Balance -255.25 -35 -325 Weight 81.647 kg 81.5 kg Intake: IV 505 60 Lidocaine-D5w Pmx 2G/ 120 250Ml 2,000 mg In Dextrose/Water 1 250ml. bag @ 1 MG/MIN 7.5 mls/hr IV .Q24H [facility] Rx#: [id number] Sodium Chloride 0.9% 1, 385 60 000 ml @ 75 mls/hr IV . [id number] [facility] Rx#:[id number] Intake, IV Titration 104.75 Amount Lidocaine-D5w Pmx 2G/ 104.75 250Ml 2,000 mg In Dextrose/Water 1 250ml. bag @ 1 MG/MIN 7.5 mls/hr IV .Q24H [facility] Rx#: [id number] Oral 330 0 Output: Urine 865 425 325 Other: Voiding Method Indwelling Catheter Urinal Urinal # Voids 1 1 - Exam Physical Exam: Revealed a 57-year-old white male, pleasant, in no distress. Head: Atraumatic normocephalic. HEENT:[Neck is supple.] [No neck masses.] [No thyromegaly.] [No JVD.] PERRLA, EOMI, no icterus. Moist mucous membranes noted. Chest: [Fine crackles at the bases, no rhonchi no wheezes.] Cardiac Exam: [Normal S1 and S2, no S3 gallop, no murmur.] Abdomen: [Soft, nontender, no megaly, no rebound, no guarding, normal bowel sounds.] Extremities: [No clubbing, no edema, no cyanosis.] Good pulses bilaterally Neurological Exam: [No focal neurologic deficit.] Alert oriented 3. Psychiatric: Normal mood, affect and mental status examination. Skin: No rashes. Lymphatics: No lymphadenopathy. - Labs CBC & Chem 7: 09/12/18 04:58 09/12/18 04:58 Labs: Abnormal Lab Results - Last 24 Hours (Table) 09/12/18 09/12/18 09/12/18 Range/Units 04:58 04:58 04:58 WBC 16.6 H (3.8-10.6) k/uL Neutrophils # 14.6 H (1.3-7.7) k/uL Lymphocytes # 0.9 L (1.0-4.8) k/uL APTT 20.0 L (22.0-30.0) sec BUN 26 H (9-20) mg/dL Creatinine 1.54 H (0.66-1.25) mg/dL Glucose 110 H (74-99) mg/dL Total Bilirubin 2.9 H (0.2-1.3) mg/dL AST 705 H (17-59) U/L ALT 118 H (21-72) U/L Assessment and Plan Assessment: Impression: 1 acute anterior myocardial infarction, status post stenting of LAD and ostial left circumflex. 2 cardiogenic shock requiring intra-aortic balloon pump placement. 3 status post temporary pacemaker insertion 4 ischemic cardiomyopathy and LV dysfunction 5 acute systolic congestive heart failure 6 history of known coronary artery disease and previous stenting 7 tobacco dependence syndrome 8 acute kidney injury, likely cardiorenal. 9 history of hypercholesterolemia, noncompliant with medications. Recommendation: Continue present treatment plan including diuretics, statins, beta blockers, hold on HILARIA inhibitor's for now, continue to monitor renal profile on a daily basis, patient could possibly be transferred to a cardiac floor with telemetry today. Responded to Lasix earlier, we'll continue to follow closely on his systolic congestive heart failure related to ischemic cardiomyopathy. Not ready for any discharge planning at this point. Discussed his condition with him and his today at bedside, was concerned about his symptoms of obstructive sleep apnea and this could be addressed on outpatient basis when he comes back to see me in the office post discharge. I have also counseled again on again regarding smoking cessation Time with Patient: Less than 30
[2018-09-12] MEDS ORDERED: ACETAMINOPHEN TAB 500 MG TAB PO PRN (14:12)
--- NOTE | 2018-09-12 15:48 | P.PN ---
Subjective Progress Note Date: 09/12/18 Principal diagnosis: STEMI Patient seen and examined. No acute events overnight. Patient reports no chest pain or palpitations. He does complain of shortness of breath which is improving slowly. is concerned about a rash on his posterior thigh that has been ongoing for multiple months. He has no other complaints today. Family is at bedside. Objective - Vital Signs Vital signs: Vital Signs Temp 99.8 F H 09/12/18 12:00 Pulse 92 09/12/18 15:00 Resp 23 09/12/18 15:00 BP 107/79 09/12/18 15:00 Pulse Ox 97 09/12/18 15:00 Intake & Output 09/11/18 09/12/18 09/12/18 18:59 06:59 18:59 Intake Total 609.75 390 250 Output Total 865 425 625 Balance -255.25 -35 -375 Weight 81.647 kg 81.5 kg Intake: IV 505 60 Lidocaine-D5w Pmx 2G/ 120 250Ml 2,000 mg In Dextrose/Water 1 250ml. bag @ 1 MG/MIN 7.5 mls/hr IV .Q24H [facility] Rx#: [id number] Sodium Chloride 0.9% 1, 385 60 000 ml @ 75 mls/hr IV . [id number] [facility] Rx#:[id number] Intake, IV Titration 104.75 Amount Lidocaine-D5w Pmx 2G/ 104.75 250Ml 2,000 mg In Dextrose/Water 1 250ml. bag @ 1 MG/MIN 7.5 mls/hr IV .Q24H [facility] Rx#: [id number] Oral 330 250 Output: Urine 865 425 625 Other: Voiding Method Indwelling Catheter Urinal Urinal # Voids 1 1 - Exam General: [non toxic], [no distress], [appears at stated age] Derm: [warm], [dry] Head: [atraumatic], [normocephalic], [symmetric] Eyes: [EOMI], [no lid lag], [anicteric sclera] Mouth: [no lip lesion], [mucus membranes moist] Cardiovascular: [S1S2 reg], [no murmur], [positive DP pulse bilateral] Lungs: [decreased breath sounds bilateral], [no rhonchi, no rales] , [no accessory muscle use] Abdominal: [soft], [ nontender to palpation], [no guarding], [no appreciable organomegaly] Ext: [no gross muscle atrophy], [no edema], [no contractures] Neuro: [no focal neuro deficits] Psych: [Alert], [oriented], [appropriate affect] - Labs CBC & Chem 7: 09/12/18 04:58 09/12/18 04:58 Labs: Abnormal Lab Results - Last 24 Hours (Table) 09/12/18 09/12/18 09/12/18 Range/Units 04:58 04:58 04:58 WBC 16.6 H (3.8-10.6) k/uL Neutrophils # 14.6 H (1.3-7.7) k/uL Lymphocytes # 0.9 L (1.0-4.8) k/uL APTT 20.0 L (22.0-30.0) sec BUN 26 H (9-20) mg/dL Creatinine 1.54 H (0.66-1.25) mg/dL Glucose 110 H (74-99) mg/dL Total Bilirubin 2.9 H (0.2-1.3) mg/dL AST 705 H (17-59) U/L ALT 118 H (21-72) U/L Assessment and Plan Assessment: Assessment and Plan 1. STEMI 2. HFrEF 3. ASHLEY on possible CKD 4. Leukocytosis 5. DVT and GI Prophylaxis 1. Underwent catheterization on 09/10/2018, drug-eluting stent placed in the mid left anterior descending artery, the ostial left circumflex. Also placed transvenous temporary pacemaker and intra-aortic balloon pump which came out yesterday. Continue aspirin and Lipitor. Continue metoprolol and Brilinta. Pain management with Tylenol. Telemetry monitoring. Will follow, cardiology recommendations. 2. Recent echocardiogram shows EF between 35 and 40% with hypokinetic wall motion. Patient is being given Lasix intermittently. Continue beta anneliese. Holding HILARIA inhibitor for kidney dysfunction. Ins and outs. Daily weights. Will follow cardiology recommendations. 3. BUN 26, creatinine of 1.54. Avoid nephrotoxins. Likely secondary to dehydration, IV contrast use. Daily BMP 4. WBC 16.6. Likely reactive due to STEMI. Daily CBC. 5. Protonix. Heparin subcutaneously.
[2018-09-12] MEDS: EPINEPHrine 4 MG in DEXTROSE 5% IN WATER 250 ML IV SCH ×2 (21:14)
[2018-09-12] MEDS: HEPARIN SODIUM,PORCINE 5,000 UNIT/ML 1 ML VIAL SQ SCH (21:16)
[2018-09-12] MEDS: ATORVASTATIN 80 MG TAB PO SCH (21:16)
[2018-09-13] MEDS: ALPRAZolam 0.5 MG TAB PO PRN ×2 (00:05→23:17)
[2018-09-13 05:09] LABS: Basophils % (A) 0 %; Eosinophils # (A) 0.1 k/uL (0-0.7); Eosinophils % (A) 1 %; HCT 36.2 % (39.0-53.0); HGB 12.4 gm/dL (13.0-17.5); Lymphocytes # (A) 1.2 k/uL (1.0-4.8); Lymphocytes % (A) 10 %; MCH 33.6 pg (25.0-35.0); MCHC 34.2 g/dL (31.0-37.0); MCV 98.1 fL (80.0-100.0); Mean Platelet Volume 6.4; Monocytes # (A) 0.8 k/uL (0-1.0); Monocytes % (A) 7 %; Neutrophils # (A) 9.5 k/uL (1.3-7.7); Neutrophils % (A) 81 %; Platelet Count 221 k/uL (150-450); RBC 3.69 m/uL (4.30-5.90); WBC 11.7 k/uL (3.8-10.6)
[2018-09-13 05:25] LABS: Anion Gap 7 mmol/L; Blood Urea Nitrogen 26 mg/dL (9-20); Calcium 8.3 mg/dL (8.4-10.2); Carbon Dioxide 26 mmol/L (22-30); Chloride 101 mmol/L (98-107); Glucose 221 mg/dL (74-99); Magnesium 1.8 mg/dL (1.6-2.3); Phosphorus 2.9 mg/dL (2.5-4.5); Potassium 4.2 mmol/L (3.5-5.1); Sodium 134 mmol/L (137-145)
[2018-09-13] MEDS ORDERED: Magnesium Replacement Protocol 1 EACH MISC MISCELLANE PRN (05:30)
[2018-09-13] MEDS: MAGNESIUM SULFATE-D5W PMX 1 GM in DEXTROSE/WATER 1 100ML.BAG IVPB SCH ×2 (06:13→07:38)
[2018-09-13] MEDS: PANTOPRAZOLE 40 MG TABLET PO SCH (07:39)
--- NOTE | 2018-09-13 08:24 | XR ---
EXAMINATION TYPE: XR chest 1V DATE OF EXAM: 09/13/2018 COMPARISON: 09/12/2019 INDICATION: Difficulty breathing IV BP placement TECHNIQUE: Single frontal view of the chest is obtained. FINDINGS: The heart size is normal. The pulmonary vasculature is normal. On improving infiltrate is in the right lower lobe. Some previous atelectatic changes in the left bas e have resolved. No radiopaque markers within the aortic arch. IMPRESSION: 1. Improving right lower lobe infiltrate. 2. Resolution previous left basilar atelectasis. 3. No radiopaque marker at the aortic arch level.
[2018-09-13] MEDS: HEPARIN SODIUM,PORCINE 5,000 UNIT/ML 1 ML VIAL SQ SCH ×2 (08:40→20:21)
[2018-09-13] MEDS: SPIRONOLACTONE 25 MG TAB PO SCH (08:41)
[2018-09-13] MEDS: METOPROLOL TARTRATE 25 MG TAB PO SCH ×2 (08:46→20:21)
[2018-09-13] MEDS: TICAGRELOR 90 MG TAB PO SCH ×2 (08:47→20:22)
[2018-09-13] MEDS: FUROSEMIDE 20 MG TAB PO SCH ×2 (08:47→15:57)
[2018-09-13] MEDS: ASPIRIN 81 MG PO SCH (08:47)
--- NOTE | 2018-09-13 10:26 | PN ---
PROGRESS NOTE Mr. Krishnan is a 57-year-old male who presented with an acute anterior myocardial infarction and underwent revascularization of his totally occluded LAD as well as his ostial left circumflex. He still has some episode of dyspnea during the night. He has no chest pain. He is in sinus mechanism. There is no evidence of ventricular ectopic activity. Hemodynamically stable. He has no dizziness or palpitation. He continues to be at this time on aspirin 81 mg daily, Lipitor 80 mg daily, Brilinta 90 mg twice a day, metoprolol tartrate 25 mg twice a day. PHYSICAL EXAMINATION: Blood pressure 116/70 with a heart rate in 70s. Lungs with few crackles at the bases. HEART: Regular rate and rhythm, S1, S2. No S3. No rub appreciated. ABDOMEN: Soft, nontender. No organomegaly. EXTREMITIES: No edema, right groin hematoma. LAB DATA: Chest x-ray shows no infiltrate with minimal congestion. BUN and creatinine of 26 and 0.99. Potassium 4.2, hemoglobin 12.4. IMPRESSION: 1. Status post anterior wall myocardial infarction with STEMI, complicated by cardiogenic shock. Stabilizing status post 2-vessel stenting. 2. Ischemic cardiomyopathy. 3. Prior history of smoking. RECOMMENDATION: I will start patient on oral diuretic as well as Aldactone. Will also add a low-dose of a an HILARIA inhibitor. Follow his renal function. Increase his activity gradually and depending on his progress, further recommendation will be made. YNES / DEN: [id number] /
[2018-09-13] MEDS: LISINOPRIL 2.5 MG TAB PO SCH (12:14)
--- NOTE | 2018-09-13 15:38 | P.PN ---
Subjective Progress Note Date: 09/13/18 Principal diagnosis: Patient seen and examined. No acute events overnight. Patient reports no chest pain, shortness of breath or palpitations. He does continue to complain of fatigue especially with exertion. is at bedside complaining about his snoring at night. Tried Xanax for sleep yesterday, unsuccessful. Plans to try BiPAP for symptoms of obstructive sleep apnea tonight. STEMI Objective - Vital Signs Vital signs: Vital Signs Temp 98.2 F 09/13/18 12:00 Pulse 97 09/13/18 12:00 Resp 18 09/13/18 12:00 BP 104/72 09/13/18 12:00 Pulse Ox 97 09/13/18 12:00 Intake & Output 09/12/18 09/13/18 09/13/18 18:59 06:59 18:59 Intake Total 470 120 240 Output Total 625 700 700 Balance -882 -320 -512 Weight 85 kg Intake: Oral 470 120 240 Output: Urine 625 700 700 Other: Voiding Method Urinal Urinal Urinal # Voids 1 - Exam General: [non toxic], [no distress], [appears at stated age] Derm: [warm], [dry] Head: [atraumatic], [normocephalic], [symmetric] Eyes: [EOMI], [no lid lag], [anicteric sclera] Mouth: [no lip lesion], [mucus membranes moist] Cardiovascular: [S1S2 reg], [no murmur], [positive DP pulse bilateral] Lungs: [decreased breath sounds bilateral], [no rhonchi, no rales] , [no accessory muscle use] Abdominal: [soft], [ nontender to palpation], [no guarding], [no appreciable organomegaly] Ext: [no gross muscle atrophy], [no edema], [no contractures] Neuro: [no focal neuro deficits] Psych: [Alert], [oriented], [appropriate affect] - Labs CBC & Chem 7: 09/13/18 04:32 09/13/18 04:32 Labs: Abnormal Lab Results - Last 24 Hours (Table) 09/13/18 09/13/18 Range/Units 04:32 04:32 WBC 11.7 H (3.8-10.6) k/uL RBC 3.69 L (4.30-5.90) m/uL Hgb 12.4 L (13.0-17.5) gm/dL Hct 36.2 L (39.0-53.0) % Neutrophils # 9.5 H (1.3-7.7) k/uL Sodium 134 L (137-145) mmol/L BUN 26 H (9-20) mg/dL Glucose 221 H (74-99) mg/dL Calcium 8.3 L (8.4-10.2) mg/dL Assessment and Plan Assessment: Assessment and Plan 1. STEMI 2. HFrEF 3. ASHLEY on possible CKD 4. Leukocytosis 5. DVT and GI Prophylaxis 1. Underwent catheterization on 09/10/2018, drug-eluting stent placed in the mid left anterior descending artery, the ostial left circumflex. Also placed transvenous temporary pacemaker and intra-aortic balloon pump which came out yesterday. Continue aspirin and Lipitor. Continue metoprolol and Brilinta. Pain management with Tylenol. Telemetry monitoring. Will follow, cardiology recommendations. 2. Recent echocardiogram shows EF between 35 and 40% with hypokinetic wall motion. Patient is being given Lasix intermittently. Continue beta anneliese. Started HILARIA inhibitor and spironolactone today. Ins and outs. Daily weights. Will follow cardiology recommendations. 3. BUN 26, creatinine of 1.54 to within normal limits. Avoid nephrotoxins. Likely secondary to dehydration, IV contrast use. Daily BMP 4. WBC 16.6 to 11.7. Likely reactive due to STEMI. Daily CBC. 5. Protonix. Heparin subcutaneously.
--- NOTE | 2018-09-13 16:41 | P.PN ---
Subjective Progress Note Date: 09/13/18 Principal diagnosis: Acute ST elevation myocardial infarction and cardiogenic shock This is a 57-year-old white male with history of coronary artery disease, multiple stents placed at [facility] a few years back. Patient presented to the ER with sudden onset of chest pain. Pain was described as pressure in the substernal area, associated with diaphoresis, nausea but no vomiting. 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 He is only on aspirin. Not on any statins, and not taking any Plavix. EKG on presentation was suggestive of anterior wall myocardial infarction with ST elevation in multiple leads. Troponin was elevated. Patient was seen by cardiology and felt to have as ST elevation myocardial infarction went for immediate cardiac catheterization. He was found to have occlusion of mid LAD and 99% stenosis of the ostial circumflex coronary artery. Patient underwent stenting of the mid LAD. And he underwent successful stenting of the ostial left circumflex. Temporary pacemaker was also placed, and in the catheterization lab, patient required intra-aortic balloon pump placement because of low blood pressure and felt the patient may be going into cardiogenic shock. Patient was then transferred to the ICU with intra-aortic balloon pump in place, did not require intubation or mechanical ventilation. I saw him this morning in the ICU, and he seems to be doing quite well. He had no pain, no shortness of breath, no cough no wheezing. Patient is already on do well and the platelet therapy his beta blockers and HILARIA inhibitor's are presently on hold for low blood pressure. And the intra-aortic balloon pump may be removed later this afternoon by cardiology. Chest x-ray showed mild interstitial edema. Echocardiogram showed impaired LV function, ejection fraction of 35-40%. Intra-aortic balloon pump is now at 1-2 augmentation. Patient was reevaluated today on 09/12/2018, remains in the ICU, hemodynamically stable, comfortable, denies any shortness of breath. Intra-aortic balloon pump was discontinued yesterday. Chest x-ray showed slight interstitial edema, patient received Lasix earlier with good response. Denies any chest pain, no cough no wheezing no fever no chills. WBC count is 16.6 hemoglobin is 14.3 electrolytes are normal renal functioning is slightly worse with a creatinine of 1.54 compared to 1.41 yesterday. And I believe that is related to his cardiogenic shock as well as contrast media which was given for his cardiac catheterization causing a bit of kidney injury. Patient was reevaluated today on 09/13/2018, doing quite well, has issues with not sleeping well at night, he does have minimal shortness of breath, chest x- ray continues to show minimal interstitial edema and atelectasis at the right base. Overall the patient is doing great, remains on diuretics, remains on multiple cardiac meds, and he is going to be transferred out of the ICU today.patient was placed on maintenance dose of Lasix and Aldactone and he was also placed on a low dose of HILARIA inhibitor. is at bedside, and she had many questions regarding eventual workup for obstructive sleep apnea, and what to expect in the long run regarding his cardiac condition. And answers were given to the patient and his to their satisfaction. Objective - Vital Signs Vital signs: Vital Signs Temp 99.4 F 09/13/18 16:00 Pulse 83 09/13/18 16:00 Resp 16 09/13/18 16:00 BP 114/80 09/13/18 16:00 Pulse Ox 97 09/13/18 16:00 Intake & Output 09/12/18 09/13/18 09/13/18 18:59 06:59 18:59 Intake Total 470 120 480 Output Total 758 140 6628 Balance -155 -580 -1020 Weight 85 kg Intake: Oral 470 120 480 Output: Urine 189 653 3537 Other: Voiding Method Urinal Urinal Urinal # Voids 1 - Exam Physical Exam: Revealed a 57-year-old white male, pleasant, in no distress. Head: Atraumatic normocephalic. HEENT:[Neck is supple.] [No neck masses.] [No thyromegaly.] [No JVD.] PERRLA, EOMI, no icterus. Moist mucous membranes noted. Chest: [Fine crackles at the bases,persist, no rhonchi no wheezes.] Cardiac Exam: [Normal S1 and S2, no S3 gallop, no murmur.] Abdomen: [Soft, nontender, no megaly, no rebound, no guarding, normal bowel sounds.] Extremities: [No clubbing, no edema, no cyanosis.] Good pulses bilaterally Neurological Exam: [No focal neurologic deficit.] Alert oriented 3. Psychiatric: Normal mood, affect and mental status examination. Skin: No rashes. Lymphatics: No lymphadenopathy. - Labs CBC & Chem 7: 09/13/18 04:32 09/13/18 04:32 Labs: Abnormal Lab Results - Last 24 Hours (Table) 09/13/18 09/13/18 Range/Units 04:32 04:32 WBC 11.7 H (3.8-10.6) k/uL RBC 3.69 L (4.30-5.90) m/uL Hgb 12.4 L (13.0-17.5) gm/dL Hct 36.2 L (39.0-53.0) % Neutrophils # 9.5 H (1.3-7.7) k/uL Sodium 134 L (137-145) mmol/L BUN 26 H (9-20) mg/dL Glucose 221 H (74-99) mg/dL Calcium 8.3 L (8.4-10.2) mg/dL Assessment and Plan Assessment: Impression: 1 acute anterior myocardial infarction, status post stenting of LAD and ostial left circumflex. 2 cardiogenic shock requiring intra-aortic balloon pump placement.resolved.resolved 3 status post temporary pacemaker insertion 4 ischemic cardiomyopathy and LV dysfunction 5 acute systolic congestive heart failure 6 history of known coronary artery disease and previous stenting 7 tobacco dependence syndrome 8 acute kidney injury, likely cardiorenal. 9 history of hypercholesterolemia, noncompliant with medications. 10 suspect obstructive sleep apnea syndrome workup will be done on outpatient basis. May consider even trying the patient at night on BiPAP with IPAP of 12 and EPAP of 4. Recommendation: Continue diuretics/Lasix and Aldactone., statins, beta blockers , HILARIA inhibitor's . continue to monitor renal profile on a daily basis, patient could possibly be transferred to a cardiac floor with telemetry today.we'll continue to follow closely on his systolic congestive heart failure related to ischemic cardiomyopathy. clearly the patient continues to have multiple complex medical issues, but overall improving steadily, will continue to follow. Again I have no objection to transfer the patient out of the ICU to a monitor bed on selective. Time with Patient: Less than 30
[2018-09-13] MEDS: ATORVASTATIN 80 MG TAB PO SCH (20:21)
[2018-09-13] MEDS: EPINEPHrine 4 MG in DEXTROSE 5% IN WATER 250 ML IV SCH ×2 (21:24)
[2018-09-14 05:09] LABS: Basophils % (A) 0 %; Eosinophils # (A) 0.2 k/uL (0-0.7); Eosinophils % (A) 2 %; HCT 35.7 % (39.0-53.0); HGB 12.3 gm/dL (13.0-17.5); Lymphocytes # (A) 1.3 k/uL (1.0-4.8); Lymphocytes % (A) 13 %; MCH 33.1 pg (25.0-35.0); MCHC 34.3 g/dL (31.0-37.0); MCV 96.5 fL (80.0-100.0); Monocytes # (A) 0.6 k/uL (0-1.0); Monocytes % (A) 5 %; Neutrophils # (A) 7.9 k/uL (1.3-7.7); Neutrophils % (A) 78 %; Platelet Count 230 k/uL (150-450); WBC 10.1 k/uL (3.8-10.6)
[2018-09-14 05:26] LABS: Calcium 8.2 mg/dL (8.4-10.2); Magnesium 2.3 mg/dL (1.6-2.3); Phosphorus 3.2 mg/dL (2.5-4.5)
--- NOTE | 2018-09-14 07:43 | XR ---
EXAMINATION TYPE: XR chest 1V DATE OF EXAM: 09/14/2018 HISTORY: Shortness of breath. COMPARISON: 09/13/2018 TECHNIQUE: Single view of the chest is submitted. FINDINGS: Demonstrated are scattered senescent parenchymal change. Right basilar infiltrate is unchanged. Follow-up until resolution advised. The heart is stable. Hilar and mediastinal structures are within normal limits. Degenerative changes are seen of the dorsal spine. IMPRESSION: 1. Right basilar infiltrate is unchanged. Follow-up until resolution advised.
[2018-09-14] MEDS: HEPARIN SODIUM,PORCINE 5,000 UNIT/ML 1 ML VIAL SQ SCH ×2 (08:30→20:53)
[2018-09-14] MEDS: FUROSEMIDE 20 MG TAB PO SCH ×2 (08:30→15:16)
[2018-09-14] MEDS: ASPIRIN 81 MG PO SCH (08:30)
[2018-09-14] MEDS: PANTOPRAZOLE 40 MG TABLET PO SCH (08:30)
[2018-09-14] MEDS: METOPROLOL TARTRATE 25 MG TAB PO SCH ×2 (08:31→20:53)
[2018-09-14] MEDS: LISINOPRIL 2.5 MG TAB PO SCH (08:31)
[2018-09-14] MEDS: SPIRONOLACTONE 25 MG TAB PO SCH (08:31)
[2018-09-14] MEDS: TICAGRELOR 90 MG TAB PO SCH ×2 (08:32→20:53)
--- NOTE | 2018-09-14 12:59 | P.PN ---
Subjective Progress Note Date: 09/14/18 Principal diagnosis: STEMI Patient seen and examined. No acute events overnight. Patient reports no chest pain, dizziness, shortness of breath or palpitations. His fatigue is continuously improving day by day. He was able to ambulate around the hallways about 3 times yesterday. His is at bedside. Objective - Vital Signs Vital signs: Vital Signs Temp 97.9 F 09/14/18 08:00 Pulse 69 09/14/18 11:00 Resp 12 09/14/18 12:00 BP 117/67 09/14/18 11:00 Pulse Ox 97 09/14/18 08:00 Intake & Output 09/13/18 09/14/18 09/14/18 18:59 06:59 18:59 Intake Total 480 300 Output Total 1500 400 Balance -1020 -400 300 Weight 88.2 kg Intake: Oral 480 300 Output: Urine 1500 400 Other: Voiding Method Urinal Urinal Urinal # Voids 1 # Bowel Movements 1 - Exam General: [non toxic], [no distress], [appears at stated age] Derm: [warm], [dry] Head: [atraumatic], [normocephalic], [symmetric] Eyes: [EOMI], [no lid lag], [anicteric sclera] Mouth: [no lip lesion], [mucus membranes moist] Cardiovascular: [S1S2 reg], [no murmur], [positive DP pulse bilateral] Lungs: [decreased breath sounds bilateral], [no rhonchi, no rales] , [no accessory muscle use] Abdominal: [soft], [ nontender to palpation], [no guarding], [no appreciable organomegaly] Ext: [no gross muscle atrophy], [no edema], [no contractures] Neuro: [no focal neuro deficits] Psych: [Alert], [oriented], [appropriate affect] - Labs CBC & Chem 7: 09/14/18 04:55 09/14/18 04:55 Labs: Abnormal Lab Results - Last 24 Hours (Table) 09/14/18 09/14/18 Range/Units 04:55 04:55 RBC 3.70 L (4.30-5.90) m/uL Hgb 12.3 L (13.0-17.5) gm/dL Hct 35.7 L (39.0-53.0) % Neutrophils # 7.9 H (1.3-7.7) k/uL Sodium 136 L (137-145) mmol/L BUN 29 H (9-20) mg/dL Creatinine 1.34 H (0.66-1.25) mg/dL Calcium 8.2 L (8.4-10.2) mg/dL Assessment and Plan Assessment: Assessment and Plan 1. STEMI 2. HFrEF 3. ASHLEY on possible CKD 4. DVT and GI Prophylaxis 1. Underwent catheterization on 09/10/2018, drug-eluting stent placed in the mid left anterior descending artery, the ostial left circumflex. Also placed transvenous temporary pacemaker and intra-aortic balloon pump which came out . Continue aspirin and Lipitor. Continue metoprolol and Brilinta. Pain management with Tylenol. Telemetry monitoring. Will follow, cardiology recommendations. 2. Recent echocardiogram shows EF between 35 and 40% with hypokinetic wall motion. Patient is being given Lasix intermittently. Continue beta anneliese. Started HILARIA inhibitor and spironolactone. Ins and outs. Daily weights. Will follow cardiology recommendations. 3. BUN 29, creatinine 1.34. Avoid nephrotoxins. Likely secondary to dehydration, IV contrast use. Daily BMP 4. Protonix. Heparin subcutaneously.
--- NOTE | 2018-09-14 13:45 | P.PN ---
Subjective Progress Note Date: 09/14/18 Principal diagnosis: Acute ST elevation myocardial infarction and cardiogenic shock This is a 57-year-old white male with history of coronary artery disease, multiple stents placed at [facility] a few years back. Patient presented to the ER with sudden onset of chest pain. Pain was described as pressure in the substernal area, associated with diaphoresis, nausea but no vomiting. Patient was last seen by his utility assembler over 10 years ago, and he doesn't follow with anyone on a regular basis. He is only on aspirin. Not on any statins, and not taking any Plavix. EKG on presentation was suggestive of anterior wall myocardial infarction with ST elevation in multiple leads. Troponin was elevated. Patient was seen by cardiology and felt to have as ST elevation myocardial infarction went for immediate cardiac catheterization. He was found to have occlusion of mid LAD and 99% stenosis of the ostial circumflex coronary artery. Patient underwent stenting of the mid LAD. And he underwent successful stenting of the ostial left circumflex. Temporary pacemaker was also placed, and in the catheterization lab, patient required intra-aortic balloon pump placement because of low blood pressure and felt the patient may be going into cardiogenic shock. Patient was then transferred to the ICU with intra-aortic balloon pump in place, did not require intubation or mechanical ventilation. I saw him this morning in the ICU, and he seems to be doing quite well. He had no pain, no shortness of breath, no cough no wheezing. Patient is already on do well and the platelet therapy his beta blockers and HILARIA inhibitor's are presently on hold for low blood pressure. And the intra-aortic balloon pump may be removed later this afternoon by cardiology. Chest x-ray showed mild interstitial edema. Echocardiogram showed impaired LV function, ejection fraction of 35-40%. Intra-aortic balloon pump is now at 1-2 augmentation. Patient was reevaluated today on 09/12/2018, remains in the ICU, hemodynamically stable, comfortable, denies any shortness of breath. Intra-aortic balloon pump was discontinued yesterday. Chest x-ray showed slight interstitial edema, patient received Lasix earlier with good response. Denies any chest pain, no cough no wheezing no fever no chills. WBC count is 16.6 hemoglobin is 14.3 electrolytes are normal renal functioning is slightly worse with a creatinine of 1.54 compared to 1.41 yesterday. And I believe that is related to his cardiogenic shock as well as contrast media which was given for his cardiac catheterization causing a bit of kidney injury. Patient was reevaluated today on 09/13/2018, doing quite well, has issues with not sleeping well at night, he does have minimal shortness of breath, chest x- ray continues to show minimal interstitial edema and atelectasis at the right base. Overall the patient is doing great, remains on diuretics, remains on multiple cardiac meds, and he is going to be transferred out of the ICU today.patient was placed on maintenance dose of Lasix and Aldactone and he was also placed on a low dose of HILARIA inhibitor. is at bedside, and she had many questions regarding eventual workup for obstructive sleep apnea, and what to expect in the long run regarding his cardiac condition. And answers were given to the patient and his to their satisfaction. Reevaluated today on 09/14/2018, patient remains in the ICU, he is an overflow patient. Doing well, no major issues overnight, he was tried on BiPAP for his obstructive sleep apnea however he did not do well with the BiPAP, and he did not sleep as much. Continues to have episodes of gasping for air while sleeping. And he will eventually require a sleep study. At this point in time the patient is doing well from the cardiac component perspective, chest x-ray showed minimal atelectasis at the right lower lobe, possibly small interstitial edema, but clinically the patient is doing great. Denies any cough no wheezing no shortness of breath no fever no chills no hemoptysis and no chest pain.labs were reviewed, renal profile is noted his creatinine is 1.34 today. Hence may have to cut down on the diuretics Objective - Vital Signs Vital signs: Vital Signs Temp 97.9 F 09/14/18 08:00 Pulse 69 09/14/18 11:00 Resp 12 09/14/18 12:00 BP 117/67 09/14/18 11:00 Pulse Ox 97 09/14/18 08:00 Intake & Output 09/13/18 09/14/18 09/14/18 18:59 06:59 18:59 Intake Total 480 540 Output Total 1500 400 Balance -1020 -400 540 Weight 88.2 kg Intake: Oral 480 540 Output: Urine 1500 400 Other: Voiding Method Urinal Urinal Urinal # Voids 1 # Bowel Movements 1 - Exam Physical Exam: Revealed a 57-year-old white male, pleasant, in no distress. Head: Atraumatic normocephalic. HEENT:[Neck is supple.] [No neck masses.] [No thyromegaly.] [No JVD.] PERRLA, EOMI, no icterus. Moist mucous membranes noted.Mallampati class III. Chest: [clear bilaterally no crackles or rhonchi or wheezes. Cardiac Exam: [Normal S1 and S2, no S3 gallop, no murmur.] Abdomen: [Soft, nontender, no megaly, no rebound, no guarding, normal bowel sounds.] Extremities: [No clubbing, no edema, no cyanosis.] Good pulses bilaterally Neurological Exam: [No focal neurologic deficit.] Alert oriented 3. Psychiatric: Normal mood, affect and mental status examination. Lymphatics: No lymphadenopathy. - Labs CBC & Chem 7: 09/14/18 04:55 09/14/18 04:55 Labs: Abnormal Lab Results - Last 24 Hours (Table) 09/14/18 09/14/18 Range/Units 04:55 04:55 RBC 3.70 L (4.30-5.90) m/uL Hgb 12.3 L (13.0-17.5) gm/dL Hct 35.7 L (39.0-53.0) % Neutrophils # 7.9 H (1.3-7.7) k/uL Sodium 136 L (137-145) mmol/L BUN 29 H (9-20) mg/dL Creatinine 1.34 H (0.66-1.25) mg/dL Calcium 8.2 L (8.4-10.2) mg/dL Assessment and Plan Assessment: Impression: 1 acute anterior myocardial infarction, status post stenting of LAD and ostial left circumflex. 2 cardiogenic shock requiring intra-aortic balloon pump placement.resolved.resolved 3 status post temporary pacemaker insertion 4 ischemic cardiomyopathy and LV dysfunction 5 acute systolic congestive heart failure 6 history of known coronary artery disease and previous stenting 7 tobacco dependence syndrome 8 acute kidney injury, likely cardiorenal. 9 history of hypercholesterolemia, noncompliant with medications. 10 suspect obstructive sleep apnea syndrome workup will be done on outpatient basis. tried on BiPAP last night, and he had poor tolerance to it. Recommendation: Continue diuretics/Lasix and Aldactone., statins, beta blockers , HILARIA inhibitor's . continue to monitor renal profile on a daily basis, patient could possibly be transferred to a cardiac floor with telemetry today.we'll continue to follow closely on his systolic congestive heart failure related to ischemic cardiomyopathy. patient could be transferred out of the ICU, his cardiac issues are being addressed by cardiology, diuretics will be adjusted accordingly and I will see on when necessary basis. Time with Patient: Less than 30
[2018-09-14] MEDS ORDERED: LOPERAMIDE 2 MG CAP PO STA ×2 (18:45→22:34)
--- NOTE | 2018-09-14 20:48 | P.PN ---
Subjective Progress Note Date: 09/14/18 This patient is status post anterior wall myocardial infarction stent to the LAD and the circumflex coronary artery. Patient has a known history of prior anterior wall and inferior wall myocardial infarction with ischemic cardiomyopathy and remains hemodynamically stable. No dysrhythmias are noted denies any orthopnea or PND patient's medications are reviewed Objective - Vital Signs Vital signs: Vital Signs Temp 97.9 F 09/14/18 08:00 Pulse 69 09/14/18 11:00 Resp 12 09/14/18 12:00 BP 117/67 09/14/18 11:00 Pulse Ox 97 09/14/18 08:00 Intake & Output 09/14/18 09/14/18 09/15/18 06:59 18:59 06:59 Intake Total 780 Output Total 400 500 Balance -400 280 Weight 88.2 kg Intake: Oral 780 Output: Urine 400 500 Other: Voiding Method Urinal Urinal # Voids 1 # Bowel Movements 1 - Exam Patient's vital signs are reviewed. The patient is alert awake and in no acute distress. HEENT negative. Neck-supple no increase in JVP noted no carotid bruits noted. Chest-symmetrical. Heart-first and second heart sounds are normal. No S3 or S4 is noted. No significant murmurs are noted. Lungs bilateral good at entry is noted. No rales or rhonchi are noted Abdomen-soft. Liver and spleen are not enlarged. The bowel sounds are normal. No tenderness noted Extremities-peripheral pulses since are 2+. No significant leg edema noted. Neuro-no significant gross abnormality noted. - Labs CBC & Chem 7: 09/14/18 04:55 09/14/18 04:55 Labs: Abnormal Lab Results - Last 24 Hours (Table) 09/14/18 09/14/18 Range/Units 04:55 04:55 RBC 3.70 L (4.30-5.90) m/uL Hgb 12.3 L (13.0-17.5) gm/dL Hct 35.7 L (39.0-53.0) % Neutrophils # 7.9 H (1.3-7.7) k/uL Sodium 136 L (137-145) mmol/L BUN 29 H (9-20) mg/dL Creatinine 1.34 H (0.66-1.25) mg/dL Calcium 8.2 L (8.4-10.2) mg/dL Assessment and Plan Assessment: This patient remains hemodynamically stable. Restriction does not show any significant left ventricular failure at present clinically patient is euvolemic we will repeat the echocardiogram to assess the left ventricular systolic function. The patient's ejection fraction is less than 30% patient would be considered for lifeless at the time of discharge
[2018-09-14] MEDS: ATORVASTATIN 80 MG TAB PO SCH (20:53)
[2018-09-14] MEDS: ALPRAZolam 0.5 MG TAB PO PRN (20:58)
[2018-09-15] MEDS: PANTOPRAZOLE 40 MG TABLET PO SCH (06:16)
[2018-09-15 06:43] LABS: Basophils % (A) 0 %; Eosinophils # (A) 0.4 k/uL (0-0.7); Eosinophils % (A) 4 %; HGB 13.1 gm/dL (13.0-17.5); Lymphocytes # (A) 1.5 k/uL (1.0-4.8); Lymphocytes % (A) 18 %; MCH 32.5 pg (25.0-35.0); MCHC 32.8 g/dL (31.0-37.0); MCV 99.1 fL (80.0-100.0); Mean Platelet Volume 6.4; Monocytes # (A) 0.6 k/uL (0-1.0); Monocytes % (A) 7 %; Neutrophils # (A) 5.7 k/uL (1.3-7.7); Neutrophils % (A) 68 %; Platelet Count 296 k/uL (150-450); RBC 4.04 m/uL (4.30-5.90); RDW 13.2 % (11.5-15.5); WBC 8.4 k/uL (3.8-10.6)
[2018-09-15 06:55] LABS: Calcium 8.6 mg/dL (8.4-10.2); Magnesium 2.1 mg/dL (1.6-2.3); Phosphorus 3.8 mg/dL (2.5-4.5); Potassium 4.4 mmol/L (3.5-5.1)
[2018-09-15] MEDS: LISINOPRIL 2.5 MG TAB PO SCH (07:40)
[2018-09-15] MEDS: TICAGRELOR 90 MG TAB PO SCH ×2 (07:41→19:52)
[2018-09-15] MEDS: SPIRONOLACTONE 25 MG TAB PO SCH (07:41)
[2018-09-15] MEDS: FUROSEMIDE 20 MG TAB PO SCH ×2 (07:41→16:05)
[2018-09-15] MEDS: ASPIRIN 81 MG PO SCH (07:41)
[2018-09-15] MEDS: METOPROLOL TARTRATE 25 MG TAB PO SCH ×2 (07:42→19:51)
[2018-09-15] MEDS: HEPARIN SODIUM,PORCINE 5,000 UNIT/ML 1 ML VIAL SQ SCH ×2 (07:43→19:52)
--- NOTE | 2018-09-15 14:28 | P.PN ---
Subjective Progress Note Date: 09/15/18 This is a 57-year-old gentleman who presented to the hospital with an anterior wall myocardial infarction. He underwent angioplasty with stenting of the LAD. Patient was found to have an ostial lesion in the circumflex of 99% and a totally occluded RCA. Patient was seen and examined this morning, he's been up ambulating in the [place] most of the day. Denies any chest pain in his breathing is been stable. Hemodynamically he has remained stable. He did have a repeat echocardiogram with Doppler study performed which we will review today. Plan is to discharge the patient home tomorrow if stable. If the patient's LV function remains significantly reduced, he will require a LifeVest prior to discharge. This was explained to the patient and his in detail. Objective - Vital Signs Vital signs: Vital Signs Temp 96.9 F L 09/15/18 12:00 Pulse 72 09/15/18 12:00 Resp 18 09/15/18 12:00 BP 121/78 09/15/18 12:00 Pulse Ox 97 09/15/18 12:00 Intake & Output 09/14/18 09/15/18 09/15/18 18:59 06:59 18:59 Intake Total 780 420 Output Total 500 Balance 280 420 Weight 88 kg Intake: Oral 780 420 Output: Urine 500 Other: Voiding Method Urinal Toilet Toilet # Voids 1 1 2 # Bowel Movements 1 - Exam PHYSICAL EXAMINATION: GENERAL: 87-year-old gentleman in no acute distress at the time of my examination HEENT: Head is atraumatic, normocephalic. Pupils equal, round. Sclera anicteric. Conjunctiva are clear. Mucous membranes of the mouth are moist. Neck is supple. There is no elevated jugular venous pressure. No carotid bruit is heard. HEART EXAMINATION: Heart S1, S2 normal. No murmur or gallop heard. CHEST EXAMINATION: On's reveal some decreased air exchange throughout. ABDOMEN: Soft, nontender. Bowel sounds are heard. No organomegaly noted. EXTREMITIES: 2+ peripheral pulses with no evidence of peripheral edema and no calf tenderness noted. NEUROLOGIC patient is awake, alert and oriented 3 . . - Labs CBC & Chem 7: 09/15/18 05:38 09/15/18 05:38 Labs: Abnormal Lab Results - Last 24 Hours (Table) 09/15/18 09/15/18 Range/Units 05:38 05:38 RBC 4.04 L (4.30-5.90) m/uL Chloride 110 H (98-107) mmol/L Carbon Dioxide 21 L (22-30) mmol/L BUN 28 H (9-20) mg/dL Creatinine 1.45 H (0.66-1.25) mg/dL Assessment and Plan Plan: Assessment and plan #1 anterior wall OK status post angioplasty and stenting of the LAD #2 known history of coronary artery disease #3 intra-aortic balloon pump #4 hypertension #5 hyperlipidemia Plan We will review the patient's echocardiogram with Doppler study, if his LV function remains significantly reduced patient will require a LifeVest prior to discharge. We will plan for discharge home in 24 hours if stable. DNP note has been reviewed, I agree with a documented findings and plan of care. Patient was seen and examined.
--- NOTE | 2018-09-15 14:34 | ECHOF ---
Referral Reason:S/P STEMI MEASUREMENTS -------- HEIGHT: 170.2 cm WEIGHT: 88.0 kg BP: IVSd: 1.2 cm (0.6 - 1.1) LVIDd: 5.3 cm (3.9 - 5.3) LVPWd: 1.2 cm (0.6 - 1.1) EDV(Teich): 137 ml IVSs: 1.3 cm LVIDs: 4.4 cm LVPWs: 1.5 cm ESV(Teich): 89 ml EF(Teich): 35 % %FS: 17 % SV(Teich): 48 ml RVIDd: 2.2 cm (< 3.3) LALs A4C: 4.8 cm LAAs A4C: 13.8 cm LAESV A-L A4C: 34 ml LAESV MOD A4C: 32 ml LALs A2C: 5.5 cm LAAs A2C: 18.4 cm LAESV A-L A2C: 52 ml LAESV MOD A2C: 50 ml LAESV(A-L): 45 ml LAESV Index (A-L): 22.51 ml/m Ao Diam: 3.1 cm (2.0 - 3.7) LA Diam: 3.0 cm (2.7 - 3.8) AV Cusp: 2.0 cm (1.5 - 2.6) EPSS: 0.4 cm MV E Tariq: 1.33 m/s MV DecT: 167 ms MV Dec [place]: 8.0 m/s MV A Tariq: 0.72 m/s MV E/A Ratio: 1.84 AV Vmax: 0.98 m/s AV maxP.82 mmHg TR Vmax: 1.03 m/s TR maxP.26 mmHg RAP: 5.00 mmHg RVSP: 9.26 mmHg MV EF SLOPE: 143.66 mm/s (70 - 150) MV EXCURSION: 2.22 cm (> 18.000) FINDINGS -------- Sinus rhythm. This was a technically adequate study. The left ventricular size is normal. There is mild concentric left ventricular hypertrophy. Overa ll left ventricular systolic function is moderately impaired with, an EF between 35 - 40 %. Inferio r Hypokinesis Septal Hypokinesis Apical Hypokinesis. The right ventricle is normal in size. Normal LA size by volume 22+/-6 ml/m2. The right atrium is normal in size. Aortic valve is trileaflet and is mildly thickened. There is no evidence of aortic regurgitation. There is no evidence of aortic stenosis. The mitral valve leaflets are mildly thickened. Mild mitral annular calcification present. There is trace to mild mitral regurgitation. Trace tricuspid regurgitation present. Right ventricular systolic pressure is normal at < 35 mmHg. There is no evidence of pulmonary hypertension. Trace/mild (physiologic) pulmonic regurgitation. The aortic root size is normal. Normal inferior vena cava with normal inspiratory collapse consistent with estimated right atrial pre ssure of 5 mmHg. There is no pericardial effusion. CONCLUSIONS -------- 1. Sinus rhythm. 2. This was a technically adequate study. 3. The left ventricular size is normal. 4. There is mild concentric left ventricular hypertrophy. 5. Overall left ventricular systolic function is moderately impaired with, an EF between 35 - 40 %. 6. Inferior Hypokinesis 7. Septal Hypokinesis 8. Apical Hypokinesis. 9. Normal LA size by volume 22+/-6 ml/m2. 10. Aortic valve is trileaflet and is mildly thickened. 11. The mitral valve leaflets are mildly thickened. 12. Mild mitral annular calcification present. 13. There is trace to mild mitral regurgitation. 14. Trace tricuspid regurgitation present. 15. Right ventricular systolic pressure is normal at < 35 mmHg. 16. There is no evidence of pulmonary hypertension. 17. Trace/mild (physiologic) pulmonic regurgitation. 18. The aortic root size is normal. 19. There is no pericardial effusion. EXCELSIOR MACHINE OPERATOR: Robert Courtney RDCS
[2018-09-15] MEDS: ATORVASTATIN 80 MG TAB PO SCH (19:51)
[2018-09-15 23:56] VITALS: RESP 16
[2018-09-16] MEDS: PANTOPRAZOLE 40 MG TABLET PO SCH (06:21)
[2018-09-16 06:31] LABS: Basophils # (A) 0.1 k/uL (0-0.2); Basophils % (A) 1 %; Eosinophils # (A) 0.5 k/uL (0-0.7); Eosinophils % (A) 5 %; HGB 13.8 gm/dL (13.0-17.5); Lymphocytes # (A) 1.6 k/uL (1.0-4.8); Lymphocytes % (A) 17 %; MCH 33.5 pg (25.0-35.0); MCHC 34.4 g/dL (31.0-37.0); MCV 97.1 fL (80.0-100.0); Mean Platelet Volume 6.3; Monocytes # (A) 0.7 k/uL (0-1.0); Monocytes % (A) 7 %; Neutrophils # (A) 6.4 k/uL (1.3-7.7); Neutrophils % (A) 68 %; Platelet Count 343 k/uL (150-450); RBC 4.11 m/uL (4.30-5.90); RDW 13.1 % (11.5-15.5); WBC 9.5 k/uL (3.8-10.6)
--- NOTE | 2018-09-16 07:13 | P.PN ---
Subjective Progress Note Date: 09/15/18 Principal diagnosis: ST elevation SD Patient was seen and examined. No acute events overnight. Seen ambulating the hallway. Objective - Vital Signs Vital signs: Vital Signs Temp 96.5 F L 09/15/18 08:00 Pulse 74 09/15/18 08:00 Resp 18 09/15/18 08:00 BP 106/61 09/15/18 08:00 Pulse Ox 97 09/15/18 08:00 Intake & Output 09/14/18 09/15/18 09/15/18 18:59 06:59 18:59 Intake Total 780 180 Output Total 500 Balance 280 180 Weight 88 kg Intake: Oral 780 180 Output: Urine 500 Other: Voiding Method Urinal Toilet # Voids 1 1 2 # Bowel Movements 1 - Exam General: [non toxic], [no distress], [appears at stated age] Derm: [warm], [dry] Head: [atraumatic], [normocephalic], [symmetric] Eyes: [EOMI], [no lid lag], [anicteric sclera] Mouth: [no lip lesion], [mucus membranes moist] Cardiovascular: [S1S2 reg], [no murmur], [positive DP pulse bilateral] Lungs: [decreased breath sounds bilateral], [no rhonchi, no rales] , [no accessory muscle use] Abdominal: [soft], [ nontender to palpation], [no guarding], [no appreciable organomegaly] Ext: [no gross muscle atrophy], [no edema], [no contractures] Neuro: [no focal neuro deficits] Psych: [Alert], [oriented], [appropriate affect] - Labs CBC & Chem 7: 09/16/18 06:08 09/15/18 05:38 Labs: Abnormal Lab Results - Last 24 Hours (Table) 09/15/18 09/15/18 Range/Units 05:38 05:38 RBC 4.04 L (4.30-5.90) m/uL Chloride 110 H (98-107) mmol/L Carbon Dioxide 21 L (22-30) mmol/L BUN 28 H (9-20) mg/dL Creatinine 1.45 H (0.66-1.25) mg/dL Assessment and Plan Assessment: Assessment and Plan 1. STEMI 2. HFrEF 3. ASHLEY on possible CKD 4. DVT and GI Prophylaxis 1. Underwent catheterization on 09/10/2018, drug-eluting stent placed in the mid left anterior descending artery, the ostial left circumflex. Also placed transvenous temporary pacemaker and intra-aortic balloon pump which came out . Continue aspirin and Lipitor. Continue metoprolol and Brilinta. Pain management with Tylenol. Telemetry monitoring. Will follow, cardiology recommendations. 2. Recent echocardiogram shows EF between 35 and 40% with hypokinetic wall motion. Patient is being given Lasix intermittently. Continue beta anneliese. Started HILARIA inhibitor and spironolactone. Ins and outs. Daily weights. Cardiology consulted, recommends repeat echocardiogram, life vest EF continues to be depressed. Will follow cardiology recommendations. 3. BUN 20, creatinine 1.45. Avoid nephrotoxins. Likely secondary to dehydration, IV contrast use. Daily BMP 4. Protonix. Heparin subcutaneously. We'll follow echocardiogram results. Discharge planning as per cardiology recommendations.
[2018-09-16] MEDS: ASPIRIN 81 MG PO SCH (08:02)
[2018-09-16] MEDS: HEPARIN SODIUM,PORCINE 5,000 UNIT/ML 1 ML VIAL SQ SCH (08:02)
[2018-09-16] MEDS: FUROSEMIDE 20 MG TAB PO SCH ×2 (08:02→16:15)
[2018-09-16] MEDS: METOPROLOL TARTRATE 25 MG TAB PO SCH (08:03)
[2018-09-16] MEDS: TICAGRELOR 90 MG TAB PO SCH (08:03)
[2018-09-16] MEDS: LISINOPRIL 2.5 MG TAB PO SCH (08:03)
[2018-09-16] MEDS: SPIRONOLACTONE 25 MG TAB PO SCH (08:03)
[2018-09-16 08:06] LABS: Calcium 9.1 mg/dL (8.4-10.2); Potassium 4.7 mmol/L (3.5-5.1)
[2018-09-16 11:35] VITALS: PULSE 67
[2018-09-16 11:37] VITALS: BP 117/72; TEMP 98.8
--- NOTE | 2018-09-16 13:32 | P.PN ---
Subjective Progress Note Date: 09/16/18 Principal diagnosis: STEMI Patient was examined. No acute events overnight. Patient looking for to going home. He denies chest pain, shortness breath or palpitations. He is able to ambulate the hallway freely without any concerns. Objective - Vital Signs Vital signs: Vital Signs Temp 98.8 F 09/16/18 11:35 Pulse 67 09/16/18 11:35 Resp 16 09/16/18 11:35 BP 117/72 09/16/18 11:35 Pulse Ox 97 09/16/18 11:01 Intake & Output 09/15/18 09/16/18 09/16/18 18:59 06:59 18:59 Intake Total 660 600 180 Output Total 500 Balance 160 600 180 Weight 79.1 kg Intake: Oral 660 600 180 Output: Urine 500 Other: Voiding Method Toilet Toilet # Voids 2 1 - Exam General: [non toxic], [no distress], [appears at stated age] Derm: [warm], [dry] Head: [atraumatic], [normocephalic], [symmetric] Eyes: [EOMI], [no lid lag], [anicteric sclera] Mouth: [no lip lesion], [mucus membranes moist] Cardiovascular: [S1S2 reg], [no murmur], [positive DP pulse bilateral] Lungs: [decreased breath sounds bilateral], [no rhonchi, no rales] , [no accessory muscle use] Abdominal: [soft], [ nontender to palpation], [no guarding], [no appreciable organomegaly] Ext: [no gross muscle atrophy], [no edema], [no contractures] Neuro: [no focal neuro deficits] Psych: [Alert], [oriented], [appropriate affect] - Labs CBC & Chem 7: 09/16/18 06:08 09/16/18 06:08 Labs: Abnormal Lab Results - Last 24 Hours (Table) 09/16/18 09/16/18 Range/Units 06:08 06:08 RBC 4.11 L (4.30-5.90) m/uL BUN 26 H (9-20) mg/dL Creatinine 1.38 H (0.66-1.25) mg/dL Assessment and Plan Assessment: Assessment and Plan 1. STEMI 2. HFrEF 3. ASHLEY on possible CKD 4. DVT and GI Prophylaxis 1. Underwent catheterization on 09/10/2018, drug-eluting stent placed in the mid left anterior descending artery, the ostial left circumflex. Also placed transvenous temporary pacemaker and intra-aortic balloon pump which came out . Continue aspirin and Lipitor. Continue metoprolol and Brilinta. Pain management with Tylenol. Telemetry monitoring. Echocardiogram prior to discharge shows EF between 35 and 40%, LifeVest not necessary. Will follow, cardiology recommendations. 2. Recent echocardiogram shows EF between 35 and 40% with hypokinetic wall motion. Patient is being given Lasix intermittently. Continue beta anneliese. Started HILARIA inhibitor and spironolactone. Ins and outs. Daily weights. Cardiology consulted, recommends repeat echocardiogram, life vest EF continues to be depressed. Echocardiogram prior to discharge shows EF between 35 and 40% , LifeVest not necessary. Will follow cardiology recommendations. 3. BUN 26, creatinine 1.38. Avoid nephrotoxins. Likely secondary to dehydration, IV contrast use. Daily BMP 4. Protonix. Heparin subcutaneously. Decision for LifeVest as per cardiology recommendations. Patient likely to be discharged today pending cardiology clearance.
--- NOTE | 2018-09-16 14:27 | P.PN ---
Subjective Progress Note Date: 09/16/18 This is a 57-year-old gentleman who presented to the hospital with an anterior wall myocardial infarction. He underwent angioplasty with stenting of the LAD. Patient was found to have an ostial lesion in the circumflex of 99% and a totally occluded RCA. Patient was seen and examined this morning, he's been up ambulating in the [place] most of the day. Denies any chest pain in his breathing is been stable. Hemodynamically he has remained stable. He did have a repeat echocardiogram with Doppler study performed which we will review today. Plan is to discharge the patient home tomorrow if stable. If the patient's LV function remains significantly reduced, he will require a LifeVest prior to discharge. This was explained to the patient and his in detail. 09/16/2018 Patient was seen and examined this morning, doing well, denies any chest pain or difficulty in breathing. Blood pressure 116/70 with a heart rate in the 60s. Echocardiogram with Doppler study was performed which revealed an ejection fraction of 35-40%. Patient will not require a LifeVest prior to discharge. He should be able to go home today and follow-up in the office in one week. Objective - Vital Signs Vital signs: Vital Signs Temp 98.8 F 09/16/18 11:35 Pulse 67 09/16/18 11:35 Resp 16 09/16/18 11:35 BP 117/72 09/16/18 11:35 Pulse Ox 97 09/16/18 11:01 Intake & Output 09/15/18 09/16/18 09/16/18 18:59 06:59 18:59 Intake Total 660 600 180 Output Total 500 Balance 160 600 180 Weight 79.1 kg Intake: Oral 660 600 180 Output: Urine 500 Other: Voiding Method Toilet Toilet # Voids 2 1 - Exam PHYSICAL EXAMINATION: GENERAL: 87-year-old gentleman in no acute distress at the time of my examination HEENT: Head is atraumatic, normocephalic. Pupils equal, round. Sclera anicteric. Conjunctiva are clear. Mucous membranes of the mouth are moist. Neck is supple. There is no elevated jugular venous pressure. No carotid bruit is heard. HEART EXAMINATION: Heart S1, S2 normal. No murmur or gallop heard. CHEST EXAMINATION: On's reveal some decreased air exchange throughout. ABDOMEN: Soft, nontender. Bowel sounds are heard. No organomegaly noted. EXTREMITIES: 2+ peripheral pulses with no evidence of peripheral edema and no calf tenderness noted. NEUROLOGIC patient is awake, alert and oriented 3 . . - Labs CBC & Chem 7: 09/16/18 06:08 09/16/18 06:08 Labs: Abnormal Lab Results - Last 24 Hours (Table) 09/16/18 09/16/18 Range/Units 06:08 06:08 RBC 4.11 L (4.30-5.90) m/uL BUN 26 H (9-20) mg/dL Creatinine 1.38 H (0.66-1.25) mg/dL Assessment and Plan Plan: Assessment and plan #1 anterior wall PA status post angioplasty and stenting of the LAD #2 known history of coronary artery disease #3 intra-aortic balloon pump #4 hypertension #5 hyperlipidemia Plan From cardiology's perspective, patient may be discharged home today. Follow-up appointment in the office post discharge. Ecotrin 81 mg daily, Lipitor 80 mg daily, Lasix 20 twice a day, lisinopril 2.5 daily, metoprolol 25 mg one tablet by mouth twice a day. Aldactone 25 mg daily, Brilinta 90 mg twice a day, he will take that for one month and then we will change him over to Plavix, sublingual nitroglycerin as needed for chest pain. DNP note has been reviewed, I agree with a documented findings and plan of care. Patient was seen and examined.
== END 2018-09-16 16:46 | disposition home or self-care (01) | DRG 270 ==
LOC: EC 20:20 → 2SICU 20:39 → 3SCARD 09-14 12:14
PROVIDERS: ADMIT Internal Medicine; ATTEND Internal Medicine
PROC: 5A02210 Assistance with Cardiac Output using Balloon Pump, Continuous (ICD-10-PCS; principal; 2018-09-10 20:45)
PROC: 027135Z Dilation of Coronary Artery, Two Arteries with Two Drug-eluting Intraluminal Devices, Percutaneous Approach (ICD-10-PCS; 2018-09-10 20:45)
PROC: 5A1223Z Performance of Cardiac Pacing, Continuous (ICD-10-PCS; 2018-09-10 20:45)
PROC: 4A023N7 Measurement of Cardiac Sampling and Pressure, Left Heart, Percutaneous Approach (ICD-10-PCS; 2018-09-10 20:45)
PROC: B2111ZZ Fluoroscopy of Multiple Coronary Arteries using Low Osmolar Contrast (ICD-10-PCS; 2018-09-10 20:45)
PROC: 3E02340 Introduction of Influenza Vaccine into Muscle, Percutaneous Approach (ICD-10-PCS; 2018-09-11)
PROC: 5A09357 Assistance with Respiratory Ventilation, Less than 24 Consecutive Hours, Continuous Positive Airway Pressure (ICD-10-PCS; 2018-09-13)
DX: I21.09 ST elevation (STEMI) myocardial infarction involving other coronary artery of anterior wall (principal); R57.0 Cardiogenic shock; I50.21 Acute systolic (congestive) heart failure; N17.9 Acute kidney failure, unspecified; I47.2 Ventricular tachycardia; I11.0 Hypertensive heart disease with heart failure; Z23 Encounter for immunization; I25.5 Ischemic cardiomyopathy; E83.42 Hypomagnesemia; I25.10 Atherosclerotic heart disease of native coronary artery without angina pectoris; I25.2 Old myocardial infarction; E78.00 Pure hypercholesterolemia, unspecified; J44.9 Chronic obstructive pulmonary disease, unspecified; E78.5 Hyperlipidemia, unspecified; E86.0 Dehydration; D72.829 Elevated white blood cell count, unspecified; G47.33 Obstructive sleep apnea (adult) (pediatric); R73.9 Hyperglycemia, unspecified; T45.526A Underdosing of antithrombotic drugs, initial encounter; Z91.128 Patient's intentional underdosing of medication regimen for other reason; F17.210 Nicotine dependence, cigarettes, uncomplicated; Z71.6 Tobacco abuse counseling; Z95.5 Presence of coronary angioplasty implant and graft; Y92.009 Unspecified place in unspecified non-institutional (private) residence as the place of occurrence of the external cause; K21.9 Gastro-esophageal reflux disease without esophagitis; Z82.49 Family history of ischemic heart disease and other diseases of the circulatory system; Z79.82 Long term (current) use of aspirin; Z79.899 Other long term (current) drug therapy
CPT/HCPCS: 33210; 33967; 36415; 36600; 71045; 80048; 80053; 82550; 82553; 82805; 83036; 83735; 83880; 84100; 84132; 84484; 85025; 85347; 85379; 85610; 85730; 90686; 93005; 93306; 93458; 94660; 96372; 96374; 96375; 99291; C1874